=== PATIENT | male | born 1940 | race Caucasian/White ===

== ENCOUNTER 2018-09-03 20:30 | Inpatient (IN) | payer MEDICARE ==
[~2018-09-03] VITALS: Ht 182.9 cm; Wt 96.8 kg
[~2018-09-03 20:30] MED LIST: ALLO100T PO; AMLO10TA8 PO; ASPI-482 PO; BYSTOLIC10 MG PO; GLIM1TAB2 PO; HYDR1POW19 MC; VALS1TAB22 PO
[2018-09-03 20:55] LABS: BILIRUBIN,URINE SMALL (NEG); CLARITY,URINE CLEAR; COLOR,URINE YELLOW; NITRITE,URINE NEGATIVE (NEG); PROTEIN,URINE NEGATIVE (NEG-TRACE); UROBILINOGEN,URINE 0.2 mg/dL (0.2 mg/dL)
[2018-09-03 21:04] LABS: HYALINE CASTS, URINE MODERATE /HPF
[2018-09-03 21:05] LABS: BACTERIA,URINE 0 /HPF (0-FEW); RBC,URINE 0 /HPF (0-2); WBC,URINE 0 /HPF (0-4)
[2018-09-03 21:06] LABS: BASO # 0.1 x10^3/uL (0.0-0.2); BASO % 1 % (0-3); EOS # 0.2 x10^3/uL (0.0-0.7); EOS % 2 % (0-3); HEMATOCRIT 37.1 % (39.0-53.0); HEMOGLOBIN 12.2 g/dL (13.0-17.5); LYMPH # 0.9 x10^3/uL (1.0-4.8); LYMPH % 12 % (24-48); MEAN CORPUSCULAR HEMOGLOBIN 31 pg (25-35); MEAN CORPUSCULAR HGB CONC 33 g/dL (31-37); MEAN CORPUSCULAR VOLUME 94 fL (79-100); MONO # 0.4 x10^3/uL (0.0-1.1); MONO % 6 % (0-9); NEUT # 6.2 x10^3uL (1.8-7.7); NEUT % 79 % (31-73); PLATELET COUNT 136 x10^3/uL (140-400); RED BLOOD COUNT 3.96 x10^6/uL (4.30-5.70); RED CELL DISTRIBUTION WIDTH 14.4 % (11.5-14.5); WHITE BLOOD COUNT 7.8 x10^3/uL (4.0-11.0)
[2018-09-03 21:24] LABS: ALBUMIN 4.1 g/dL (3.4-5.0); ALBUMIN/GLOBULIN RATIO 1.2 (1.0-1.7); CALCIUM 9.5 mg/dL (8.5-10.1); CREATININE 4.3 mg/dL (0.7-1.3); GFR 13.5; TOTAL BILIRUBIN 1.1 mg/dL (0.2-1.0); TOTAL PROTEIN 7.4 g/dL (6.4-8.2)
[2018-09-03 21:25] LABS: POTASSIUM 6.3 mmol/L (3.5-5.1)
[2018-09-03] MEDS ORDERED: CALCIUM GLUCONATE 1,000 MG/10 ML VIAL. IVP ONE (22:00)
[2018-09-03] MEDS ORDERED: SODIUM POLYSTYRENE SULFONATE 15 GM/60 ML ORAL.SUSP. PO ONE (22:00)
[2018-09-03] MEDS ORDERED: SODIUM BICARB ADULT 8.4% 50 MEQ/50 ML DISP.SYRIN. IV ONE (22:00)
[2018-09-03] MEDS ORDERED: ALBUTEROL SULFATE 2.5 MG/3 ML NEBU. CONT NEB ONE (22:00)
[2018-09-03] MEDS ORDERED: DEXTROSE 50% 25 GM / 50ML DISP.SYRIN. IV ONE (22:00)
[2018-09-03] MEDS ORDERED: INSULIN REGULAR 100 UNIT/ML 3ML VIAL. IV ONE (22:00)
--- NOTE | 2018-09-03 22:03 | PHYS DOC ---
Past Medical History Past Medical History: CAD, Diabetes-Type II, Other Additional Past Medical Histor: lymphoma Past Surgical History: Coronary Bypass Surgery, Other Additional Past Surgical Histo: STENT PLACEMENT Alcohol Use: Occasionally Drug Use: None Adult General Chief Complaint Chief Complaint: ABDOMINAL PAIN HPI HPI 77-year-old male with a history of diabetes and coronary artery disease status post CABG presents with abnormal labs from his primary doctor's office. I spoke with the physician executive chef assistant who takes care of the patient and she informed me that he had an elevated potassium of 6.3 in the office. She checked routine labs because he been feeling poorly for a couple of months. Patient admits that he has been feeling poorly for a couple of months now. He has had some mid abdominal and lower abdominal discomfort off and on during that time. He states he continues to make urine. He denies any fever chills or sweats. He's had no nausea or vomiting. He denies any melena or hematemesis or hematochezia. Eyes gross hematuria.[] Review of Systems Review of Systems Constitutional: Denies fever or chills [] Eyes: Denies change in visual acuity, redness, or eye pain [] HENT: Denies nasal congestion or sore throat [] Respiratory: Denies cough or shortness of breath [] Cardiovascular: No additional information not addressed in HPI [] GI: Denies abdominal pain, nausea, vomiting, bloody stools or diarrhea [] : Per history of present illness[] Musculoskeletal: Denies back pain or joint pain [] Integument: Denies rash or skin lesions [] Neurologic: Denies headache, focal weakness or sensory changes [] Endocrine: Denies polyuria or polydipsia [] All other systems were reviewed and found to be within normal limits, except as documented in this note. Current Medications Current Medications Current Medications Medications (Trade) Dose Ordered Sig/Viraj Start Time Stop Time Status Last Admin Dose Admin Albuterol Sulfate (Ventolin Neb Soln) 10 mg 1X ONCE 09/03/18 22:00 09/03/18 22:01 UNV Calcium Gluconate (Calcium Gluconate) 1,000 mg 1X ONCE 09/03/18 22:00 09/03/18 22:01 UNV Dextrose (Dextrose 50%-Water Syringe) 25 gm 1X ONCE 09/03/18 22:00 09/03/18 22:01 UNV Insulin Human Regular (HumuLIN R VIAL) 10 unit 1X ONCE 09/03/18 22:00 09/03/18 22:01 UNV Sodium Polystyrene Sulfonate (Kayexalate) 30 gm 1X ONCE 09/03/18 22:00 09/03/18 22:01 UNV Sodium Bicarbonate (Sodium Bicarb Adult 8.4% Syr) 50 meq 1X ONCE 09/03/18 22:00 09/03/18 22:01 UNV Allergies Allergies Allergies Coded Allergies Type Severity Reaction Last Updated Verified No Known Drug Allergies 08/28/13 No Physical Exam Physical Exam Constitutional: Well developed, well nourished, no acute distress, non-toxic appearance. [] HENT: Normocephalic, atraumatic, bilateral external ears normal, oropharynx moist, no oral exudates, nose normal. [] Eyes: PERRLA, EOMI, conjunctiva normal, no discharge. [] Neck: Normal range of motion, no tenderness, supple, no stridor. [] Cardiovascular:Heart rate regular rhythm, no murmur [] Lungs & Thorax: Bilateral breath sounds clear to auscultation [] Abdomen: Bowel sounds normal, soft, no tenderness, no masses, no pulsatile masses. [] Skin: Warm, dry, no erythema, no rash. [] Back: No tenderness, no CVA tenderness. [] Extremities: No tenderness, no cyanosis, no clubbing, ROM intact, no edema. [] Neurologic: Alert and oriented X 3, normal motor function, normal sensory function, no focal deficits noted. [] Psychologic: Affect normal, judgement normal, mood normal. [] Current Patient Data Vital Signs Vital Signs Date Time Temp Pulse Resp B/P (MAP) Pulse Ox O2 Delivery O2 Flow Rate FiO2 09/03/18 20:54 84 16 117/69 (85) 95 Room Air 09/03/18 20:32 98.0 98.0 Lab Values Laboratory Tests Test 09/03/18 20:40 09/03/18 20:58 Urine Collection Type Unknown Urine Color Yellow Urine Clarity Clear Urine pH 5.0 Urine Specific [place] 1.020 Urine Protein Negative mg/dL (NEG-TRACE) Urine Glucose (UA) Negative mg/dL (NEG) Urine Ketones (Stick) Negative mg/dL (NEG) Urine Blood Negative (NEG) Urine Nitrite Negative (NEG) Urine Bilirubin Small (NEG) Urine Urobilinogen Dipstick 0.2 mg/dL (0.2 mg/dL) Urine Leukocyte Esterase Negative (NEG) Urine RBC 0 /HPF (0-2) Urine WBC 0 /HPF (0-4) Urine Bacteria 0 /HPF (0-FEW) Urine Hyaline Casts Moderate /HPF Urine Mucus Mod /LPF White Blood Count 7.8 x10^3/uL (4.0-11.0) Red Blood Count 3.96 x10^6/uL (4.30-5.70) L Hemoglobin 12.2 g/dL (13.0-17.5) L Hematocrit 37.1 % (39.0-53.0) L Mean Corpuscular Volume 94 fL (79-100) Mean Corpuscular Hemoglobin 31 pg (25-35) Mean Corpuscular Hemoglobin Concent 33 g/dL (31-37) Red Cell Distribution Width 14.4 % (11.5-14.5) Platelet Count 136 x10^3/uL (140-400) L Neutrophils (%) (Auto) 79 % (31-73) H Lymphocytes (%) (Auto) 12 % (24-48) L Monocytes (%) (Auto) 6 % (0-9) Eosinophils (%) (Auto) 2 % (0-3) Basophils (%) (Auto) 1 % (0-3) Neutrophils # (Auto) 6.2 x10^3uL (1.8-7.7) Lymphocytes # (Auto) 0.9 x10^3/uL (1.0-4.8) L Monocytes # (Auto) 0.4 x10^3/uL (0.0-1.1) Eosinophils # (Auto) 0.2 x10^3/uL (0.0-0.7) Basophils # (Auto) 0.1 x10^3/uL (0.0-0.2) Sodium Level 137 mmol/L (136-145) Potassium Level 6.3 mmol/L (3.5-5.1) *H Chloride Level 103 mmol/L (98-107) Carbon Dioxide Level 21 mmol/L (21-32) Anion Gap 13 (6-14) Blood Urea Nitrogen 84 mg/dL (8-26) H Creatinine 4.3 mg/dL (0.7-1.3) H Estimated GFR (Cockcroft-Gault) 13.5 BUN/Creatinine Ratio 20 (6-20) Glucose Level 178 mg/dL (70-99) H Calcium Level 9.5 mg/dL (8.5-10.1) Total Bilirubin 1.1 mg/dL (0.2-1.0) H Aspartate Amino Transferase (AST) 24 U/L (15-37) Alanine Aminotransferase (ALT) 41 U/L (16-63) Alkaline Phosphatase 85 U/L (46-116) Total Protein 7.4 g/dL (6.4-8.2) Albumin 4.1 g/dL (3.4-5.0) Albumin/Globulin Ratio 1.2 (1.0-1.7) Lipase 447 U/L (73-393) H Laboratory Tests 09/03/18 20:58 Laboratory Tests 09/03/18 20:58 EKG EKG [EKG: Sinus rhythm right bundle branch block no obvious T-wave abnormality rate in the 70s] Radiology/Procedures Radiology/Procedures [] Course & Med Decision Making Course & Med Decision Making Pertinent Labs and Imaging studies reviewed. (See chart for details) [ED course: Evaluation reveals a 77-year-old male with acute renal failure and hyperkalemia. Patient was given a multitude of medicines in the emergency department including calcium gluconate, sodium bicarbonate, 1 amp of D50 and 10 units of regular insulin along with 10 mg of albuterol nebulized. He was also given 30 g of Kayexalate. I will place the patient in the hospital with a nephrology consult. I did speak with the hospitalist who agreed to accept the patient for admission.] CRITICAL CARE: Time spent was 35 minutes. This includes medical management, evaluation, reevaluation, discussion with consultants and family. Critical Care does NOT include time spent on separately billed procedures. Dragon Disclaimer Dragon Disclaimer This electronic medical record was generated, in whole or in part, using a voice recognition dictation system. Departure Departure Impression: Primary Impression: Acute renal failure (ARF) Additional Impression: Hyperkalemia Disposition: ADMITTED INPATIENT Admitting Physician: Bridgette Davis Condition: GUARDED Referrals: UNKNOWN PCP NAME (PCP) Problem Qualifiers Primary Impression: Acute renal failure (ARF) Acute renal failure type: unspecified Qualified Codes: N17.9 - Acute kidney failure, unspecified ISAK DICKINSON DO Sep 03, 2018 22:03
[2018-09-03] MEDS ORDERED: ONDANSETRON PF 4 MG/2 ML VIAL. IV PRN (22:15)
[2018-09-03] MEDS: IV NORMAL SALINE 1000ML BAG 1,000 ML IV SCH (23:14)
[2018-09-04] VITALS (7 sets, daily range): BP systolic 110–157; BP diastolic 49–74
[2018-09-04] MEDS: IV NORMAL SALINE 1000ML BAG 1,000 ML IV SCH ×2 (06:21→14:39)
--- NOTE | 2018-09-04 07:05 | EKG ---
[facility] [address] [place] [address] Test Date: 2018-09-03 Test Time: 21:17:40 Pat Name: WOJCIECH SERRANO Department: Room: 8 1 Gender: M Floor Service Worker [place]: : 1940 Requested By: ISAK DICKINSON Order Number: [id number] Reading MD: Leonard Roche MD Measurements Intervals [place] Rate: 71 P: 29 [place]: 268 QRS: 21 QRSD: 140 T: 16 QT: 402 QTc: 441 Interpretive Statements SINUS RHYTHM PROLONGED [place] INTERVAL NON SPECIFIC INTRAVENTRICULAR BLOCK RVH WITH REPOLARIZATION ABNORMALITY QRS(T) CONTOUR ABNORMALITY CONSISTENT WITH INFERIOR INFARCT PROBABLY OLD ABNORMAL ECG Electronically Signed On 09-16-2018 9:49:58 CDT by Leonard Roche MD
[2018-09-04 07:09] LABS: CALCIUM 8.9 mg/dL (8.5-10.1); CREATININE 3.4 mg/dL (0.7-1.3); GFR 17.7
--- NOTE | 2018-09-04 10:59 | PDOC1 ---
History and Physical Date of Admission Date of Admission DATE: 09/04/18 TIME: 10:58 Identification/Chief Complaint Chief Complaint seen in er , history of diabetes and coronary artery disease status post CABG presents with abnormal labs from his primary doctor's office. he had an elevated potassium of 6.3 in the office. She checked routine labs because he been feeling poorly for a couple of months. medicines in the emergency department including calcium gluconate, sodium bicarbonate, 1 amp of D50 and 10 units of regular insulin along with 10 mg of albuterol nebulized. He was also given 30 g of Kayexalate. Past Medical History Past Medical History Past Medical History Past Medical History: CAD, Diabetes-Type II, Other Additional Past Medical Histor: lymphoma Past Surgical History: Coronary Bypass Surgery, Other Additional Past Surgical Histo: STENT PLACEMENT Alcohol Use: Occasionally Drug Use: None Cardiovascular: CAD, HTN Pulmonary: No pertinent hx Heme/Onc: Cancer Renal/: No pertinent hx, Chronic renal insuff, Acute renal failure Endocrine: Diabetes Past Surgical History Past Surgical History: CABG Family History Family History: Hypertension Social History Smoke: No ALCOHOL: none Drugs: None Current Problem List Problem List Problems Medical Problems: (1) Acute renal failure (ARF) Status: Acute (2) Hyperkalemia Status: Acute Current Medications Current Medications Current Medications Sodium Bicarbonate (Sodium Bicarb Adult 8.4% Syr) 50 meq 1X ONCE IV Last administered on 09/03/18at 22:10; Start 09/03/18 at 22:00; Stop 09/03/18 at 22:01; Status DC Calcium Gluconate (Calcium Gluconate) 1,000 mg 1X ONCE IVP Last administered on 09/03/18at 22:11; Start 09/03/18 at 22:00; Stop 09/03/18 at 22:01; Status DC Dextrose (Dextrose 50%-Water Syringe) 25 gm 1X ONCE IV Last administered on 09/03/18at 22:10; Start 09/03/18 at 22:00; Stop 09/03/18 at 22:01; Status DC Insulin Human Regular (HumuLIN R VIAL) 10 unit 1X ONCE IV Last administered on 09/03/18at 22:12; Start 09/03/18 at 22:00; Stop 09/03/18 at 22:01; Status DC Albuterol Sulfate (Ventolin Neb Soln) 10 mg 1X ONCE CONT NEB Last administered on 09/03/18at 22:40; Start 09/03/18 at 22:00; Stop 09/03/18 at 22:01; Status DC Sodium Polystyrene Sulfonate (Kayexalate) 30 gm 1X ONCE PO Last administered on 09/03/18at 22:10; Start 09/03/18 at 22:00; Stop 09/03/18 at 22:01; Status DC Ondansetron HCl (Zofran) 4 mg PRN Q8HRS PRN IV NAUSEA/VOMITING; Start 09/03/18 at 22:15; Stop 09/04/18 at 22:14 Sodium Chloride 1,000 ml @ 125 mls/hr Q8H IV Last administered on 09/04/18at 06 :21; Start 09/03/18 at 22:03; Stop 09/04/18 at 22:02 Active Scripts Active Aspir 81 (Aspirin) 81 Mg Tablet.dr 81 Mg PO DAILY Glimepiride 1 Mg Tablet 1 Mg PO DAILY Allopurinol 100 Mg Tablet 100 Mg PO DAILY Bystolic (Nebivolol) 10 Mg Tablet 10 Mg PO DAILY Amlodipine Besylate 10 Mg Tablet 10 Mg PO DAILY Hydrochlorothiazide 25 Gm Powder 25 Gm MC DAILY Diovan Hct 320-25 Mg Tablet (Valsartan/Hydrochlorothiazide) 1 Each Tablet 1 Each PO DAILY Allergies Allergies: Coded Allergies: No Known Drug Allergies (Unverified , 08/28/13) ROS Review of System Review of Systems Review of Systems Constitutional: Denies fever or chills [] Eyes: Denies change in visual acuity, redness, or eye pain [] HENT: Denies nasal congestion or sore throat [] Respiratory: Denies cough or shortness of breath [] Cardiovascular: No additional information not addressed in HPI [] GI: Denies abdominal pain, nausea, vomiting, bloody stools or diarrhea [] : Per history of present illness[] Musculoskeletal: Denies back pain or joint pain [] Integument: Denies rash or skin lesions [] Neurologic: Denies headache, focal weakness or sensory changes [] Endocrine: Denies polyuria or polydipsia [] 14 pt systems were reviewed and found to be within normal limits, except as documented Physical Exam Physical Exam Physical Exam Physical Exam Constitutional: Well developed, well nourished, no acute distress, non-toxic appearance. [] HENT: Normocephalic, atraumatic, bilateral external ears normal, oropharynx moist, no oral exudates, nose normal. [] Eyes: PERRLA, EOMI, conjunctiva normal, no discharge. [] Neck: Normal range of motion, no tenderness, supple, no stridor. [] Cardiovascular:Heart rate regular rhythm, no murmur [] Lungs & Thorax: Bilateral breath sounds clear to auscultation [] Abdomen: Bowel sounds normal, soft, no tenderness, no masses, no pulsatile masses. [] Skin: Warm, dry, no erythema, no rash. [] Back: No tenderness, no CVA tenderness. [] Extremities: No tenderness, no cyanosis, no clubbing, ROM intact, no edema. [] Neurologic: Alert and oriented X 3, normal motor function, normal sensory function, no focal deficits noted. [] Psychologic: Affect normal, judgement normal, mood normal. [] General: Alert, Oriented X3, Cooperative, mild distress HEENT: Atraumatic, PERRLA Lungs: Clear to auscultation Heart: S1S2, RRR Abdomen: Normal bowel sounds, Soft Rectal Exam: not examined PELVIC: Examination not indicated Extremities: No clubbing, No cyanosis Skin: No breakdown Neuro: Normal speech, Cranial nerves 3-12 NL Psych/Mental Status: Mental status NL, Mood NL Vitals Vitals Vital Signs Date Time Temp Pulse Resp B/P (MAP) Pulse Ox O2 Delivery O2 Flow Rate FiO2 09/04/18 10:00 Room Air 09/04/18 07:00 97.7 87 17 124/70 (88) 98 97.7 Labs Labs Laboratory Tests Test 09/03/18 20:40 09/03/18 20:58 09/04/18 05:00 Urine Collection Type Unknown Urine Color Yellow Urine Clarity Clear Urine pH 5.0 Urine Specific [place] 1.020 Urine Protein Negative mg/dL (NEG-TRACE) Urine Glucose (UA) Negative mg/dL (NEG) Urine Ketones (Stick) Negative mg/dL (NEG) Urine Blood Negative (NEG) Urine Nitrite Negative (NEG) Urine Bilirubin Small (NEG) Urine Urobilinogen Dipstick 0.2 mg/dL (0.2 mg/dL) Urine Leukocyte Esterase Negative (NEG) Urine RBC 0 /HPF (0-2) Urine WBC 0 /HPF (0-4) Urine Bacteria 0 /HPF (0-FEW) Urine Hyaline Casts Moderate /HPF Urine Mucus Mod /LPF White Blood Count 7.8 x10^3/uL (4.0-11.0) Red Blood Count 3.96 x10^6/uL (4.30-5.70) Hemoglobin 12.2 g/dL (13.0-17.5) Hematocrit 37.1 % (39.0-53.0) Mean Corpuscular Volume 94 fL (79-100) Mean Corpuscular Hemoglobin 31 pg (25-35) Mean Corpuscular Hemoglobin Concent 33 g/dL (31-37) Red Cell Distribution Width 14.4 % (11.5-14.5) Platelet Count 136 x10^3/uL (140-400) Neutrophils (%) (Auto) 79 % (31-73) Lymphocytes (%) (Auto) 12 % (24-48) Monocytes (%) (Auto) 6 % (0-9) Eosinophils (%) (Auto) 2 % (0-3) Basophils (%) (Auto) 1 % (0-3) Neutrophils # (Auto) 6.2 x10^3uL (1.8-7.7) Lymphocytes # (Auto) 0.9 x10^3/uL (1.0-4.8) Monocytes # (Auto) 0.4 x10^3/uL (0.0-1.1) Eosinophils # (Auto) 0.2 x10^3/uL (0.0-0.7) Basophils # (Auto) 0.1 x10^3/uL (0.0-0.2) Sodium Level 137 mmol/L (136-145) 142 mmol/L (136-145) Potassium Level 6.3 mmol/L (3.5-5.1) 5.0 mmol/L (3.5-5.1) Chloride Level 103 mmol/L (98-107) 106 mmol/L (98-107) Carbon Dioxide Level 21 mmol/L (21-32) 22 mmol/L (21-32) Anion Gap 13 (6-14) 14 (6-14) Blood Urea Nitrogen 84 mg/dL (8-26) 85 mg/dL (8-26) Creatinine 4.3 mg/dL (0.7-1.3) 3.4 mg/dL (0.7-1.3) Estimated GFR (Cockcroft-Gault) 13.5 17.7 BUN/Creatinine Ratio 20 (6-20) Glucose Level 178 mg/dL (70-99) 84 mg/dL (70-99) Calcium Level 9.5 mg/dL (8.5-10.1) 8.9 mg/dL (8.5-10.1) Total Bilirubin 1.1 mg/dL (0.2-1.0) Aspartate Amino Transf (AST/SGOT) 24 U/L (15-37) Alanine Aminotransferase (ALT/SGPT) 41 U/L (16-63) Alkaline Phosphatase 85 U/L (46-116) Total Protein 7.4 g/dL (6.4-8.2) Albumin 4.1 g/dL (3.4-5.0) Albumin/Globulin Ratio 1.2 (1.0-1.7) Lipase 447 U/L (73-393) Laboratory Tests Test 09/03/18 20:40 09/03/18 20:58 09/04/18 05:00 Urine Collection Type Unknown Urine Color Yellow Urine Clarity Clear Urine pH 5.0 Urine Specific [place] 1.020 Urine Protein Negative mg/dL (NEG-TRACE) Urine Glucose (UA) Negative mg/dL (NEG) Urine Ketones (Stick) Negative mg/dL (NEG) Urine Blood Negative (NEG) Urine Nitrite Negative (NEG) Urine Bilirubin Small (NEG) Urine Urobilinogen Dipstick 0.2 mg/dL (0.2 mg/dL) Urine Leukocyte Esterase Negative (NEG) Urine RBC 0 /HPF (0-2) Urine WBC 0 /HPF (0-4) Urine Bacteria 0 /HPF (0-FEW) Urine Hyaline Casts Moderate /HPF Urine Mucus Mod /LPF White Blood Count 7.8 x10^3/uL (4.0-11.0) Red Blood Count 3.96 x10^6/uL (4.30-5.70) Hemoglobin 12.2 g/dL (13.0-17.5) Hematocrit 37.1 % (39.0-53.0) Mean Corpuscular Volume 94 fL (79-100) Mean Corpuscular Hemoglobin 31 pg (25-35) Mean Corpuscular Hemoglobin Concent 33 g/dL (31-37) Red Cell Distribution Width 14.4 % (11.5-14.5) Platelet Count 136 x10^3/uL (140-400) Neutrophils (%) (Auto) 79 % (31-73) Lymphocytes (%) (Auto) 12 % (24-48) Monocytes (%) (Auto) 6 % (0-9) Eosinophils (%) (Auto) 2 % (0-3) Basophils (%) (Auto) 1 % (0-3) Neutrophils # (Auto) 6.2 x10^3uL (1.8-7.7) Lymphocytes # (Auto) 0.9 x10^3/uL (1.0-4.8) Monocytes # (Auto) 0.4 x10^3/uL (0.0-1.1) Eosinophils # (Auto) 0.2 x10^3/uL (0.0-0.7) Basophils # (Auto) 0.1 x10^3/uL (0.0-0.2) Sodium Level 137 mmol/L (136-145) 142 mmol/L (136-145) Potassium Level 6.3 mmol/L (3.5-5.1) 5.0 mmol/L (3.5-5.1) Chloride Level 103 mmol/L (98-107) 106 mmol/L (98-107) Carbon Dioxide Level 21 mmol/L (21-32) 22 mmol/L (21-32) Anion Gap 13 (6-14) 14 (6-14) Blood Urea Nitrogen 84 mg/dL (8-26) 85 mg/dL (8-26) Creatinine 4.3 mg/dL (0.7-1.3) 3.4 mg/dL (0.7-1.3) Estimated GFR (Cockcroft-Gault) 13.5 17.7 BUN/Creatinine Ratio 20 (6-20) Glucose Level 178 mg/dL (70-99) 84 mg/dL (70-99) Calcium Level 9.5 mg/dL (8.5-10.1) 8.9 mg/dL (8.5-10.1) Total Bilirubin 1.1 mg/dL (0.2-1.0) Aspartate Amino Transf (AST/SGOT) 24 U/L (15-37) Alanine Aminotransferase (ALT/SGPT) 41 U/L (16-63) Alkaline Phosphatase 85 U/L (46-116) Total Protein 7.4 g/dL (6.4-8.2) Albumin 4.1 g/dL (3.4-5.0) Albumin/Globulin Ratio 1.2 (1.0-1.7) Lipase 447 U/L (73-393) VTE Prophylaxis Ordered VTE Prophylaxis Devices: Yes VTE Pharmacological Prophylaxi: Yes Assessment/Plan Assessment/Plan impression 1. acute renal failure, severe 2. hyperkalemia, life threatening, severe 3. 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 hx lymphoma 6. hypertension hx 7. hx CAD plan correct k URGENTLY nephrology consult iv fluid support tele frequent labs bp control a1c D/C nephrotoxins, allopurinol, valsarten accuchecks ss insulin DVT prophylaxis 78 min pt exam, chart review, > 50% of time spent with exam, chart review, pt care coordination LEIF OWENS MD Sep 04, 2018 10:59
--- NOTE | 2018-09-04 17:20 | PDOC2 ---
CONSULT Date of Consult Date of Consult DATE: 09/04/18 TIME: 17:15 Reason for Consult Reason for Consult: BRAEDEN Source Source: Chart review, Patient History of Present Illness Reason for Visit: Pt is a 77 yo CM with history of diabetes and CAD status post CABG presents with abnormal labs from his primary doctor's office.He was found to have an elevated potassium of 6.3 in the office. Labs checked because he been feeling poorly for a couple of months. He states he is pretty active and still works . He states he does'nt have any kidney issues , he rememebers that few years back he was told that his Kidney enz was high but ahd returned back to normal after the med (doesnt know the name) was stopped . He has been following with PCP regularly. Currently his PCP is Dr. Bishop He denies any urinary complaints. No CP, SOB., No N/V/D. No Urinary retention. Never takes NSAID's or any pain meds . He wa son ValsartaN/HCTZ which was dced due to recall and switched to Spironolactone 50 mg QD approx 3 months back He is Not sure if he is still on HCTZ . 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) Past Medical History Cardiovascular: CAD, HTN Pulmonary: No pertinent hx Heme/Onc: Cancer Renal/: No pertinent hx Endocrine: Diabetes Past Surgical History Past Surgical History: CABG Family History Family History: Hypertension Current Problem List Problem List Problems Medical Problems: (1) Acute renal failure (ARF) Status: Acute (2) Hyperkalemia Status: Acute Current Medications Current Medications Current Medications Sodium Bicarbonate (Sodium Bicarb Adult 8.4% Syr) 50 meq 1X ONCE IV Last administered on 09/03/18at 22:10; Start 09/03/18 at 22:00; Stop 09/03/18 at 22:01; Status DC Calcium Gluconate (Calcium Gluconate) 1,000 mg 1X ONCE IVP Last administered on 09/03/18at 22:11; Start 09/03/18 at 22:00; Stop 09/03/18 at 22:01; Status DC Dextrose (Dextrose 50%-Water Syringe) 25 gm 1X ONCE IV Last administered on 09/03/18at 22:10; Start 09/03/18 at 22:00; Stop 09/03/18 at 22:01; Status DC Insulin Human Regular (HumuLIN R VIAL) 10 unit 1X ONCE IV Last administered on 09/03/18at 22:12; Start 09/03/18 at 22:00; Stop 09/03/18 at 22:01; Status DC Albuterol Sulfate (Ventolin Neb Soln) 10 mg 1X ONCE CONT NEB Last administered on 09/03/18at 22:40; Start 09/03/18 at 22:00; Stop 09/03/18 at 22:01; Status DC Sodium Polystyrene Sulfonate (Kayexalate) 30 gm 1X ONCE PO Last administered on 09/03/18at 22:10; Start 09/03/18 at 22:00; Stop 09/03/18 at 22:01; Status DC Ondansetron HCl (Zofran) 4 mg PRN Q8HRS PRN IV NAUSEA/VOMITING; Start 09/03/18 at 22:15; Stop 09/04/18 at 22:14 Sodium Chloride 1,000 ml @ 125 mls/hr Q8H IV Last administered on 09/04/18at 14 :39; Start 09/03/18 at 22:03; Stop 09/04/18 at 22:02 Active Scripts Active Aspir 81 (Aspirin) 81 Mg Tablet.dr 81 Mg PO DAILY Glimepiride 1 Mg Tablet 1 Mg PO DAILY Allopurinol 100 Mg Tablet 100 Mg PO DAILY Bystolic (Nebivolol) 10 Mg Tablet 10 Mg PO DAILY Amlodipine Besylate 10 Mg Tablet 10 Mg PO DAILY Hydrochlorothiazide 25 Gm Powder 25 Gm MC DAILY Diovan Hct 320-25 Mg Tablet (Valsartan/Hydrochlorothiazide) 1 Each Tablet 1 Each PO DAILY Allergies Allergies: Coded Allergies: No Known Drug Allergies (Unverified , 08/28/13) ROS Review of System As per HPI Physical Exam Physical Exam GEN: NAD HEEN: OM moist NECK: supple CVS: RRR RESP: CTA, No Acc. Muscle Use GI: BS + ve, NO Bruit, Non Tender, Non Distended : No CVA tenderness, No Suprapubic Tenderness NEURO- AXOX3 SKIN- No Rash - No Mark, No SP or CVA tenderness Vital Signs Vital Signs Date Time Temp Pulse Resp B/P (MAP) Pulse Ox O2 Delivery O2 Flow Rate FiO2 09/04/18 15:00 97.5 75 18 140/70 (93) 98 Room Air 97.5 Assessment & Plan BRAEDEN - Pre-renal/ATN Suspect sec to Aldactone Baseline Unknown(Cr 1.7-2 in 2014 at [facility]) Obtain Records from PCP IVF, Renal US , Monitor I/O, UA unremarkable , Holding Aldactone Hyperkalemia - Improved CAD s/p CABG On Valsartan/HCTZ in past Spironolactone since past 3 months , Dced now Discussed A/P with pt and RN Labs Labs Laboratory Tests Test 09/03/18 20:40 09/03/18 20:58 09/04/18 05:00 Urine Collection Type Unknown Urine Color Yellow Urine Clarity Clear Urine pH 5.0 Urine Specific [place] 1.020 Urine Protein Negative mg/dL (NEG-TRACE) Urine Glucose (UA) Negative mg/dL (NEG) Urine Ketones (Stick) Negative mg/dL (NEG) Urine Blood Negative (NEG) Urine Nitrite Negative (NEG) Urine Bilirubin Small (NEG) Urine Urobilinogen Dipstick 0.2 mg/dL (0.2 mg/dL) Urine Leukocyte Esterase Negative (NEG) Urine RBC 0 /HPF (0-2) Urine WBC 0 /HPF (0-4) Urine Bacteria 0 /HPF (0-FEW) Urine Hyaline Casts Moderate /HPF Urine Mucus Mod /LPF White Blood Count 7.8 x10^3/uL (4.0-11.0) Red Blood Count 3.96 x10^6/uL (4.30-5.70) Hemoglobin 12.2 g/dL (13.0-17.5) Hematocrit 37.1 % (39.0-53.0) Mean Corpuscular Volume 94 fL (79-100) Mean Corpuscular Hemoglobin 31 pg (25-35) Mean Corpuscular Hemoglobin Concent 33 g/dL (31-37) Red Cell Distribution Width 14.4 % (11.5-14.5) Platelet Count 136 x10^3/uL (140-400) Neutrophils (%) (Auto) 79 % (31-73) Lymphocytes (%) (Auto) 12 % (24-48) Monocytes (%) (Auto) 6 % (0-9) Eosinophils (%) (Auto) 2 % (0-3) Basophils (%) (Auto) 1 % (0-3) Neutrophils # (Auto) 6.2 x10^3uL (1.8-7.7) Lymphocytes # (Auto) 0.9 x10^3/uL (1.0-4.8) Monocytes # (Auto) 0.4 x10^3/uL (0.0-1.1) Eosinophils # (Auto) 0.2 x10^3/uL (0.0-0.7) Basophils # (Auto) 0.1 x10^3/uL (0.0-0.2) Sodium Level 137 mmol/L (136-145) 142 mmol/L (136-145) Potassium Level 6.3 mmol/L (3.5-5.1) 5.0 mmol/L (3.5-5.1) Chloride Level 103 mmol/L (98-107) 106 mmol/L (98-107) Carbon Dioxide Level 21 mmol/L (21-32) 22 mmol/L (21-32) Anion Gap 13 (6-14) 14 (6-14) Blood Urea Nitrogen 84 mg/dL (8-26) 85 mg/dL (8-26) Creatinine 4.3 mg/dL (0.7-1.3) 3.4 mg/dL (0.7-1.3) Estimated GFR (Cockcroft-Gault) 13.5 17.7 BUN/Creatinine Ratio 20 (6-20) Glucose Level 178 mg/dL (70-99) 84 mg/dL (70-99) Calcium Level 9.5 mg/dL (8.5-10.1) 8.9 mg/dL (8.5-10.1) Total Bilirubin 1.1 mg/dL (0.2-1.0) Aspartate Amino Transf (AST/SGOT) 24 U/L (15-37) Alanine Aminotransferase (ALT/SGPT) 41 U/L (16-63) Alkaline Phosphatase 85 U/L (46-116) Total Protein 7.4 g/dL (6.4-8.2) Albumin 4.1 g/dL (3.4-5.0) Albumin/Globulin Ratio 1.2 (1.0-1.7) Lipase 447 U/L (73-393) Laboratory Tests Test 09/03/18 20:40 09/03/18 20:58 09/04/18 05:00 Urine Collection Type Unknown Urine Color Yellow Urine Clarity Clear Urine pH 5.0 Urine Specific [place] 1.020 Urine Protein Negative mg/dL (NEG-TRACE) Urine Glucose (UA) Negative mg/dL (NEG) Urine Ketones (Stick) Negative mg/dL (NEG) Urine Blood Negative (NEG) Urine Nitrite Negative (NEG) Urine Bilirubin Small (NEG) Urine Urobilinogen Dipstick 0.2 mg/dL (0.2 mg/dL) Urine Leukocyte Esterase Negative (NEG) Urine RBC 0 /HPF (0-2) Urine WBC 0 /HPF (0-4) Urine Bacteria 0 /HPF (0-FEW) Urine Hyaline Casts Moderate /HPF Urine Mucus Mod /LPF White Blood Count 7.8 x10^3/uL (4.0-11.0) Red Blood Count 3.96 x10^6/uL (4.30-5.70) Hemoglobin 12.2 g/dL (13.0-17.5) Hematocrit 37.1 % (39.0-53.0) Mean Corpuscular Volume 94 fL (79-100) Mean Corpuscular Hemoglobin 31 pg (25-35) Mean Corpuscular Hemoglobin Concent 33 g/dL (31-37) Red Cell Distribution Width 14.4 % (11.5-14.5) Platelet Count 136 x10^3/uL (140-400) Neutrophils (%) (Auto) 79 % (31-73) Lymphocytes (%) (Auto) 12 % (24-48) Monocytes (%) (Auto) 6 % (0-9) Eosinophils (%) (Auto) 2 % (0-3) Basophils (%) (Auto) 1 % (0-3) Neutrophils # (Auto) 6.2 x10^3uL (1.8-7.7) Lymphocytes # (Auto) 0.9 x10^3/uL (1.0-4.8) Monocytes # (Auto) 0.4 x10^3/uL (0.0-1.1) Eosinophils # (Auto) 0.2 x10^3/uL (0.0-0.7) Basophils # (Auto) 0.1 x10^3/uL (0.0-0.2) Sodium Level 137 mmol/L (136-145) 142 mmol/L (136-145) Potassium Level 6.3 mmol/L (3.5-5.1) 5.0 mmol/L (3.5-5.1) Chloride Level 103 mmol/L (98-107) 106 mmol/L (98-107) Carbon Dioxide Level 21 mmol/L (21-32) 22 mmol/L (21-32) Anion Gap 13 (6-14) 14 (6-14) Blood Urea Nitrogen 84 mg/dL (8-26) 85 mg/dL (8-26) Creatinine 4.3 mg/dL (0.7-1.3) 3.4 mg/dL (0.7-1.3) Estimated GFR (Cockcroft-Gault) 13.5 17.7 BUN/Creatinine Ratio 20 (6-20) Glucose Level 178 mg/dL (70-99) 84 mg/dL (70-99) Calcium Level 9.5 mg/dL (8.5-10.1) 8.9 mg/dL (8.5-10.1) Total Bilirubin 1.1 mg/dL (0.2-1.0) Aspartate Amino Transf (AST/SGOT) 24 U/L (15-37) Alanine Aminotransferase (ALT/SGPT) 41 U/L (16-63) Alkaline Phosphatase 85 U/L (46-116) Total Protein 7.4 g/dL (6.4-8.2) Albumin 4.1 g/dL (3.4-5.0) Albumin/Globulin Ratio 1.2 (1.0-1.7) Lipase 447 U/L (73-393) Review All relevant outside records, renal labs, imaging studies, telemetry/EKG's were reviewed. DAISY ACKERMAN MD Sep 04, 2018 17:19
[2018-09-04] MEDS ORDERED: DEXTROSE 50% 25 GM / 50ML DISP.SYRIN. IV PRN (17:30)
[2018-09-04 17:47] LABS: PROTHROMBIN TIME PATIENT 12.9 SEC (11.7-14.0)
[2018-09-04] MEDS: ASPIRIN ENTERIC COATED 81 MG TABLET.DR. PO SCH (17:47)
[2018-09-04] MEDS: amLODIPine BESYLATE 10 MG TABLET PO SCH (17:47)
[2018-09-04] MEDS: METOPROLOL TART IMMED RELEASE 50 MG TABLET. PO SCH (20:54)
[2018-09-04] MEDS: HEPARIN for SUB-Q USE 5,000 UNIT/ML VIAL. SQ SCH (22:22)
[2018-09-05 03:00] VITALS: BP 136/73
[2018-09-05 04:23] LABS: BASO # 0.1 x10^3/uL (0.0-0.2); BASO % 1 % (0-3); EOS # 0.2 x10^3/uL (0.0-0.7); EOS % 3 % (0-3); HEMATOCRIT 34.5 % (39.0-53.0); HEMOGLOBIN 11.5 g/dL (13.0-17.5); LYMPH # 1.1 x10^3/uL (1.0-4.8); LYMPH % 18 % (24-48); MEAN CORPUSCULAR HEMOGLOBIN 31 pg (25-35); MEAN CORPUSCULAR HGB CONC 33 g/dL (31-37); MEAN CORPUSCULAR VOLUME 94 fL (79-100); MONO # 0.4 x10^3/uL (0.0-1.1); MONO % 6 % (0-9); NEUT # 4.6 x10^3uL (1.8-7.7); NEUT % 72 % (31-73); PLATELET COUNT 114 x10^3/uL (140-400); RED BLOOD COUNT 3.68 x10^6/uL (4.30-5.70); RED CELL DISTRIBUTION WIDTH 14.2 % (11.5-14.5); WHITE BLOOD COUNT 6.4 x10^3/uL (4.0-11.0)
[2018-09-05 04:39] LABS: ALBUMIN 3.5 g/dL (3.4-5.0); ALBUMIN/GLOBULIN RATIO 1.2 (1.0-1.7); CALCIUM 8.9 mg/dL (8.5-10.1); CREATININE 2.4 mg/dL (0.7-1.3); GFR 26.4; TOTAL PROTEIN 6.4 g/dL (6.4-8.2)
[2018-09-05] MEDS: HEPARIN for SUB-Q USE 5,000 UNIT/ML VIAL. SQ SCH ×3 (06:22→20:27)
[2018-09-05 07:15] VITALS: BP 141/72
[2018-09-05] MEDS: INSULIN LISPRO 300 UNITS/3 ML INSULN.PEN. SQ SCH ×3 (08:00→17:00)
--- NOTE | 2018-09-05 08:20 | RAD ---
Renal ultrasound 09/04/2018 INDICATION: Acute renal failure COMPARISON STUDY: None Discussion: Ultrasound evaluation of the kidneys was performed. Static images are submitted to PACS. Right kidney measures 9.8 x 5.0 x 5.1 cm. Lobulated appearance of the right kidney noted. No hydronephrosis or nephrolithiasis is identified on the right. No focal renal lesions are seen. Partial visualization of the aorta and IVC demonstrates no gross abnormality. Left kidney measures 11.1 x 4.8 x 4.5 cm. Lobulated appearance of the left kidney noted. No hydronephrosis, nephrolithiasis, or focal renal lesion is seen on the left. Bilateral ureteral jets noted. The bladder is mildly distended. The prostate appears to be enlarged possibly partially calcified external projecting into the inferior bladder. Prostate is somewhat poorly visualized however the estimated prostatic dimensions are 3.8 x 3.9 x 3.1 cm. There is a possible right sided bladder diverticulum which is poorly demonstrated. Post void bladder residual volume was found to be elevated at 253 cc. IMPRESSION: 1. Mild right renal atrophy with respect to the contralateral side. 2. Bladder distention with increased post void residual volume 253 cc 3. Possible small right bladder diverticulum, visualization of which is limited 4. Prostamegaly Electronically signed by: Osbaldo Medrano MD (09/05/2018 8:18 AM) [id number]
[2018-09-05] MEDS: ASPIRIN ENTERIC COATED 81 MG TABLET.DR. PO SCH (09:01)
[2018-09-05] MEDS: GLIMEPIRIDE 2 MG TABLET. PO SCH (09:02)
[2018-09-05] MEDS: amLODIPine BESYLATE 10 MG TABLET PO SCH (09:02)
[2018-09-05] MEDS: METOPROLOL TART IMMED RELEASE 50 MG TABLET. PO SCH ×2 (09:03→20:24)
--- NOTE | 2018-09-05 10:20 | PDOC ---
PROGRESS NOTES History of Present Illness History of Present Illness Assessment/Plan Assessment/Plan impression 1. acute renal failure, severe 2. hyperkalemia, life threatening, severe 3. 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 hx lymphoma 6. hypertension hx 7. hx CAD 8. Post void bladder residual volume was found to be elevated at 253 cc. 9. prostate appears to be enlarged possibly partially calcified external projecting into the inferior bladder.estimated prostatic dimensions are 3.8 x 3.9 x 3.1 cm. There is a possible right sided bladder diverticulum which is poorly demonstrated. plan correct k URGENTLY nephrology consult iv fluid support tele frequent labs bp control a1c D/C nephrotoxins, allopurinol, valsarten accuchecks ss insulin DVT prophylaxis urology consult 45 min pt exam, chart review, > 50% of time spent with exam, chart review, pt care coordination Vitals Vitals Vital Signs Date Time Temp Pulse Resp B/P (MAP) Pulse Ox O2 Delivery O2 Flow Rate FiO2 09/05/18 09:03 70 141/72 09/05/18 07:15 97.6 20 98 Room Air 97.6 Physical Exam General: Alert, Oriented X3, Cooperative, No acute distress, mild distress Heart: Regular rate Lungs: Clear Abdomen: Normal bowel sounds, Soft Extremities: No clubbing, No cyanosis Skin: No breakdown, No significant lesion Labs LABS Renal ultrasound 09/04/2018 INDICATION: Acute renal failure COMPARISON STUDY: None Discussion: Ultrasound evaluation of the kidneys was performed. Static images are submitted to PACS. Right kidney measures 9.8 x 5.0 x 5.1 cm. Lobulated appearance of the right kidney noted. No hydronephrosis or nephrolithiasis is identified on the right. No focal renal lesions are seen. Partial visualization of the aorta and IVC demonstrates no gross abnormality. Left kidney measures 11.1 x 4.8 x 4.5 cm. Lobulated appearance of the left kidney noted. No hydronephrosis, nephrolithiasis, or focal renal lesion is seen on the left. Bilateral ureteral jets noted. The bladder is mildly distended. The prostate appears to be enlarged possibly partially calcified external projecting into the inferior bladder. Prostate is somewhat poorly visualized however the estimated prostatic dimensions are 3.8 x 3.9 x 3.1 cm. There is a possible right sided bladder diverticulum which is poorly demonstrated. Post void bladder residual volume was found to be elevated at 253 cc. IMPRESSION: 1. Mild right renal atrophy with respect to the contralateral side. 2. Bladder distention with increased post void residual volume 253 cc 3. Possible small right bladder diverticulum, visualization of which is limited 4. Prostamegaly Electronically signed by: Osbaldo Medrano MD (09/05/2018 8:18 AM) [id number] Laboratory Tests Test 09/04/18 19:15 09/05/18 02:50 09/05/18 07:28 09/05/18 08:01 Glucose (Fingerstick) 94 mg/dL (70-99) 68 mg/dL (70-99) 103 mg/dL (70-99) White Blood Count 6.4 x10^3/uL (4.0-11.0) Red Blood Count 3.68 x10^6/uL (4.30-5.70) Hemoglobin 11.5 g/dL (13.0-17.5) Hematocrit 34.5 % (39.0-53.0) Mean Corpuscular Volume 94 fL (79-100) Mean Corpuscular Hemoglobin 31 pg (25-35) Mean Corpuscular Hemoglobin Concent 33 g/dL (31-37) Red Cell Distribution Width 14.2 % (11.5-14.5) Platelet Count 114 x10^3/uL (140-400) Neutrophils (%) (Auto) 72 % (31-73) Lymphocytes (%) (Auto) 18 % (24-48) Monocytes (%) (Auto) 6 % (0-9) Eosinophils (%) (Auto) 3 % (0-3) Basophils (%) (Auto) 1 % (0-3) Neutrophils # (Auto) 4.6 x10^3uL (1.8-7.7) Lymphocytes # (Auto) 1.1 x10^3/uL (1.0-4.8) Monocytes # (Auto) 0.4 x10^3/uL (0.0-1.1) Eosinophils # (Auto) 0.2 x10^3/uL (0.0-0.7) Basophils # (Auto) 0.1 x10^3/uL (0.0-0.2) Sodium Level 141 mmol/L (136-145) Potassium Level 5.0 mmol/L (3.5-5.1) Chloride Level 106 mmol/L (98-107) Carbon Dioxide Level 24 mmol/L (21-32) Anion Gap 11 (6-14) Blood Urea Nitrogen 61 mg/dL (8-26) Creatinine 2.4 mg/dL (0.7-1.3) Estimated GFR (Cockcroft-Gault) 26.4 BUN/Creatinine Ratio 25 (6-20) Glucose Level 66 mg/dL (70-99) Calcium Level 8.9 mg/dL (8.5-10.1) Total Bilirubin 1.0 mg/dL (0.2-1.0) Aspartate Amino Transf (AST/SGOT) 23 U/L (15-37) Alanine Aminotransferase (ALT/SGPT) 37 U/L (16-63) Alkaline Phosphatase 70 U/L (46-116) Total Protein 6.4 g/dL (6.4-8.2) Albumin 3.5 g/dL (3.4-5.0) Albumin/Globulin Ratio 1.2 (1.0-1.7) Assessment and Plan Assessmemt and Plan Problems Medical Problems: (1) Acute renal failure (ARF) Status: Acute (2) Hyperkalemia Status: Acute Comment Review of Relevant I have reviewed the following items tonia (where applicable) has been applied. Labs Laboratory Tests Test 09/03/18 20:40 09/03/18 20:58 09/04/18 05:00 09/04/18 19:15 Urine Collection Type Unknown Urine Color Yellow Urine Clarity Clear Urine pH 5.0 Urine Specific [place] 1.020 Urine Protein Negative mg/dL (NEG-TRACE) Urine Glucose (UA) Negative mg/dL (NEG) Urine Ketones (Stick) Negative mg/dL (NEG) Urine Blood Negative (NEG) Urine Nitrite Negative (NEG) Urine Bilirubin Small (NEG) Urine Urobilinogen Dipstick 0.2 mg/dL (0.2 mg/dL) Urine Leukocyte Esterase Negative (NEG) Urine RBC 0 /HPF (0-2) Urine WBC 0 /HPF (0-4) Urine Bacteria 0 /HPF (0-FEW) Urine Hyaline Casts Moderate /HPF Urine Mucus Mod /LPF White Blood Count 7.8 x10^3/uL (4.0-11.0) Red Blood Count 3.96 x10^6/uL (4.30-5.70) Hemoglobin 12.2 g/dL (13.0-17.5) Hematocrit 37.1 % (39.0-53.0) Mean Corpuscular Volume 94 fL (79-100) Mean Corpuscular Hemoglobin 31 pg (25-35) Mean Corpuscular Hemoglobin Concent 33 g/dL (31-37) Red Cell Distribution Width 14.4 % (11.5-14.5) Platelet Count 136 x10^3/uL (140-400) Neutrophils (%) (Auto) 79 % (31-73) Lymphocytes (%) (Auto) 12 % (24-48) Monocytes (%) (Auto) 6 % (0-9) Eosinophils (%) (Auto) 2 % (0-3) Basophils (%) (Auto) 1 % (0-3) Neutrophils # (Auto) 6.2 x10^3uL (1.8-7.7) Lymphocytes # (Auto) 0.9 x10^3/uL (1.0-4.8) Monocytes # (Auto) 0.4 x10^3/uL (0.0-1.1) Eosinophils # (Auto) 0.2 x10^3/uL (0.0-0.7) Basophils # (Auto) 0.1 x10^3/uL (0.0-0.2) Sodium Level 137 mmol/L (136-145) 142 mmol/L (136-145) Potassium Level 6.3 mmol/L (3.5-5.1) 5.0 mmol/L (3.5-5.1) Chloride Level 103 mmol/L (98-107) 106 mmol/L (98-107) Carbon Dioxide Level 21 mmol/L (21-32) 22 mmol/L (21-32) Anion Gap 13 (6-14) 14 (6-14) Blood Urea Nitrogen 84 mg/dL (8-26) 85 mg/dL (8-26) Creatinine 4.3 mg/dL (0.7-1.3) 3.4 mg/dL (0.7-1.3) Estimated GFR (Cockcroft-Gault) 13.5 17.7 BUN/Creatinine Ratio 20 (6-20) Glucose Level 178 mg/dL (70-99) 84 mg/dL (70-99) Calcium Level 9.5 mg/dL (8.5-10.1) 8.9 mg/dL (8.5-10.1) Total Bilirubin 1.1 mg/dL (0.2-1.0) Aspartate Amino Transf (AST/SGOT) 24 U/L (15-37) Alanine Aminotransferase (ALT/SGPT) 41 U/L (16-63) Alkaline Phosphatase 85 U/L (46-116) Total Protein 7.4 g/dL (6.4-8.2) Albumin 4.1 g/dL (3.4-5.0) Albumin/Globulin Ratio 1.2 (1.0-1.7) Lipase 447 U/L (73-393) Prothrombin Time 12.9 SEC (11.7-14.0) Prothromb Time International Ratio 1.0 (0.8-1.1) Glucose (Fingerstick) 94 mg/dL (70-99) Test 09/05/18 02:50 09/05/18 07:28 09/05/18 08:01 White Blood Count 6.4 x10^3/uL (4.0-11.0) Red Blood Count 3.68 x10^6/uL (4.30-5.70) Hemoglobin 11.5 g/dL (13.0-17.5) Hematocrit 34.5 % (39.0-53.0) Mean Corpuscular Volume 94 fL (79-100) Mean Corpuscular Hemoglobin 31 pg (25-35) Mean Corpuscular Hemoglobin Concent 33 g/dL (31-37) Red Cell Distribution Width 14.2 % (11.5-14.5) Platelet Count 114 x10^3/uL (140-400) Neutrophils (%) (Auto) 72 % (31-73) Lymphocytes (%) (Auto) 18 % (24-48) Monocytes (%) (Auto) 6 % (0-9) Eosinophils (%) (Auto) 3 % (0-3) Basophils (%) (Auto) 1 % (0-3) Neutrophils # (Auto) 4.6 x10^3uL (1.8-7.7) Lymphocytes # (Auto) 1.1 x10^3/uL (1.0-4.8) Monocytes # (Auto) 0.4 x10^3/uL (0.0-1.1) Eosinophils # (Auto) 0.2 x10^3/uL (0.0-0.7) Basophils # (Auto) 0.1 x10^3/uL (0.0-0.2) Sodium Level 141 mmol/L (136-145) Potassium Level 5.0 mmol/L (3.5-5.1) Chloride Level 106 mmol/L (98-107) Carbon Dioxide Level 24 mmol/L (21-32) Anion Gap 11 (6-14) Blood Urea Nitrogen 61 mg/dL (8-26) Creatinine 2.4 mg/dL (0.7-1.3) Estimated GFR (Cockcroft-Gault) 26.4 BUN/Creatinine Ratio 25 (6-20) Glucose Level 66 mg/dL (70-99) Calcium Level 8.9 mg/dL (8.5-10.1) Total Bilirubin 1.0 mg/dL (0.2-1.0) Aspartate Amino Transf (AST/SGOT) 23 U/L (15-37) Alanine Aminotransferase (ALT/SGPT) 37 U/L (16-63) Alkaline Phosphatase 70 U/L (46-116) Total Protein 6.4 g/dL (6.4-8.2) Albumin 3.5 g/dL (3.4-5.0) Albumin/Globulin Ratio 1.2 (1.0-1.7) Glucose (Fingerstick) 68 mg/dL (70-99) 103 mg/dL (70-99) Laboratory Tests Test 09/04/18 19:15 09/05/18 02:50 09/05/18 07:28 09/05/18 08:01 Glucose (Fingerstick) 94 mg/dL (70-99) 68 mg/dL (70-99) 103 mg/dL (70-99) White Blood Count 6.4 x10^3/uL (4.0-11.0) Red Blood Count 3.68 x10^6/uL (4.30-5.70) Hemoglobin 11.5 g/dL (13.0-17.5) Hematocrit 34.5 % (39.0-53.0) Mean Corpuscular Volume 94 fL (79-100) Mean Corpuscular Hemoglobin 31 pg (25-35) Mean Corpuscular Hemoglobin Concent 33 g/dL (31-37) Red Cell Distribution Width 14.2 % (11.5-14.5) Platelet Count 114 x10^3/uL (140-400) Neutrophils (%) (Auto) 72 % (31-73) Lymphocytes (%) (Auto) 18 % (24-48) Monocytes (%) (Auto) 6 % (0-9) Eosinophils (%) (Auto) 3 % (0-3) Basophils (%) (Auto) 1 % (0-3) Neutrophils # (Auto) 4.6 x10^3uL (1.8-7.7) Lymphocytes # (Auto) 1.1 x10^3/uL (1.0-4.8) Monocytes # (Auto) 0.4 x10^3/uL (0.0-1.1) Eosinophils # (Auto) 0.2 x10^3/uL (0.0-0.7) Basophils # (Auto) 0.1 x10^3/uL (0.0-0.2) Sodium Level 141 mmol/L (136-145) Potassium Level 5.0 mmol/L (3.5-5.1) Chloride Level 106 mmol/L (98-107) Carbon Dioxide Level 24 mmol/L (21-32) Anion Gap 11 (6-14) Blood Urea Nitrogen 61 mg/dL (8-26) Creatinine 2.4 mg/dL (0.7-1.3) Estimated GFR (Cockcroft-Gault) 26.4 BUN/Creatinine Ratio 25 (6-20) Glucose Level 66 mg/dL (70-99) Calcium Level 8.9 mg/dL (8.5-10.1) Total Bilirubin 1.0 mg/dL (0.2-1.0) Aspartate Amino Transf (AST/SGOT) 23 U/L (15-37) Alanine Aminotransferase (ALT/SGPT) 37 U/L (16-63) Alkaline Phosphatase 70 U/L (46-116) Total Protein 6.4 g/dL (6.4-8.2) Albumin 3.5 g/dL (3.4-5.0) Albumin/Globulin Ratio 1.2 (1.0-1.7) Medications Current Medications Sodium Bicarbonate (Sodium Bicarb Adult 8.4% Syr) 50 meq 1X ONCE IV Last administered on 09/03/18 22:10; Start 09/03/18 at 22:00; Stop 09/03/18 at 22:01; Status DC Calcium Gluconate (Calcium Gluconate) 1,000 mg 1X ONCE IVP Last administered on 09/03/18 22:11; Start 09/03/18 at 22:00; Stop 09/03/18 at 22:01; Status DC Dextrose (Dextrose 50%-Water Syringe) 25 gm 1X ONCE IV Last administered on 22:10; Start 09/03/18 at 22:00; Stop 09/03/18 at 22:01; Status DC Insulin Human Regular (HumuLIN R VIAL) 10 unit 1X ONCE IV Last administered on 09/03/18 22:12; Start 09/03/18 at 22:00; Stop 09/03/18 at 22:01; Status DC Albuterol Sulfate (Ventolin Neb Soln) 10 mg 1X ONCE CONT NEB Last administered on 09/03/18 22:40; Start 09/03/18 at 22:00; Stop 09/03/18 at 22:01; Status DC Sodium Polystyrene Sulfonate (Kayexalate) 30 gm 1X ONCE PO Last administered on 09/03/18 22:10; Start 09/03/18 at 22:00; Stop 09/03/18 at 22:01; Status DC Ondansetron HCl (Zofran) 4 mg PRN Q8HRS PRN IV NAUSEA/VOMITING; Start 09/03/18 at 22:15; Stop 09/04/18 at 22:14; Status DC Sodium Chloride 1,000 ml @ 125 mls/hr Q8H IV Last administered on 09/04/18 14 :39; Start 09/03/18 at 22:03; Stop 09/04/18 at 22:02; Status DC Amlodipine Besylate (Norvasc) 10 mg DAILY PO Last administered on 09/05/18 09: 02; Start 09/04/18 at 17:30 Aspirin (Ecotrin) 81 mg DAILY PO Last administered on 09/05/18 09:01; Start at 17:00 Glimepiride (Amaryl) 1 mg DAILYWBKFT PO Last administered on 4/11/19at 09:02; Start 09/05/18 at 08:00 Metoprolol Tartrate (Lopressor) 50 mg BID PO Last administered on 09/05/18at 09: 03; Start 09/04/18 at 21:00 Insulin Human Lispro (HumaLOG) 0-5 UNITS TIDWMEALS SQ ; Start 09/05/18 at 08:00 Dextrose (Dextrose 50%-Water Syringe) 12.5 gm PRN Q15MIN PRN IV SEE COMMENTS; Start 09/04/18 at 17:30 Heparin Sodium (Porcine) (Heparin Sodium) 5,000 unit Q8HRS SQ Last administered on 09/05/18at 06:22; Start 09/04/18 at 22:00 Active Scripts Active Aspir 81 (Aspirin) 81 Mg Tablet.dr 81 Mg PO DAILY Glimepiride 1 Mg Tablet 1 Mg PO DAILY Allopurinol 100 Mg Tablet 100 Mg PO DAILY Bystolic (Nebivolol) 10 Mg Tablet 10 Mg PO DAILY Amlodipine Besylate 10 Mg Tablet 10 Mg PO DAILY Hydrochlorothiazide 25 Gm Powder 25 Gm MC DAILY Diovan Hct 320-25 Mg Tablet (Valsartan/Hydrochlorothiazide) 1 Each Tablet 1 Each PO DAILY Vitals/I & O Vital Sign - Last 24 Hours 09/04/18 09/04/18 09/04/18 09/04/18 11:00 15:00 17:47 19:00 Temp 97.7 97.5 97.7 97.7 97.5 97.7 Pulse 78 75 75 80 Resp 17 18 18 B/P (MAP) 133/74 (93) 140/70 (93) 140/70 157/71 (99) Pulse Ox 97 98 95 O2 Delivery Room Air Room Air Room Air 09/04/18 09/04/18 09/04/18 09/05/18 20:00 20:54 23:00 03:00 Temp 97.5 98.1 97.5 98.1 Pulse 80 68 79 Resp 18 18 B/P (MAP) 157/71 128/63 (84) 136/73 (94) Pulse Ox 96 96 O2 Delivery Room Air Room Air Room Air 09/05/18 09/05/18 09/05/18 07:15 09:02 09:03 Temp 97.6 97.6 Pulse 70 70 70 Resp 20 B/P (MAP) 141/72 (95) 141/72 141/72 Pulse Ox 98 O2 Delivery Room Air Intake and Output 09/04/18 09/04/18 09/05/18 14:59 22:59 06:59 Intake Total 480 ml 0 ml Balance 480 ml 0 ml LEIF OWENS MD Sep 05, 2018 10:20
--- NOTE | 2018-09-05 10:49 | PDOC2 ---
YARITZA CRUZ [place] MANAGER EXPORT 09/05/18 1049: UROLOGY CONSULT Date of Consult Date of Consult DATE: 09/05/18 TIME: 10:46 Reason for Consult Reason for Consult: Urinary retention noted on US + Enlarged prostate Referring Physician Referring Physician: Livier Source Source: Caregiver, Chart review, Patient History of Present Illness Reason for Visit: This 77 year old pleasant male with a history of DM and CAD with status post CABG. has been hospitalized for Renal Failure and hyperkalemia. He had some labs checked by his PCP due to "not feeling well," and they revealed a K level of 6.3. During the course of his hospitalization, a Renal US was ordered and he was found to have a PVR of 253 and an enlarged prostate on the imaging; therefore Urology was consulted. Today he is feeling well, with no dysuria, hematuria or LUTS. He only gets up once a night, around 5 am to void, but other than this is doing quite well. He last had a BEATRIZ/prostate check about one year ago, and is agreeable to getting it done again today. He denies history of kidney stones, and has never been told he has BPH or prostate cancer. He would like to go home today but is not sure if this is going to happen. Past Medical History Cardiovascular: CAD, HTN Pulmonary: No pertinent hx Heme/Onc: Cancer Renal/: No pertinent hx, Chronic renal insuff, Acute renal failure Endocrine: Diabetes Past Surgical History Past Surgical History: CABG Family History Family History: Hypertension Social History No ALCOHOL: none Drugs: None Current Problem List Problems: (1) BPH (benign prostatic hyperplasia) Current Medications Current Medications Current Medications Amlodipine Besylate (Norvasc) 10 mg DAILY PO Last administered on 09/05/18at 09: 02; Start 09/04/18 at 17:30 Aspirin (Ecotrin) 81 mg DAILY PO Last administered on 09/05/18at 09:01; Start at 17:00 Dextrose (Dextrose 50%-Water Syringe) 12.5 gm PRN Q15MIN PRN IV SEE COMMENTS; Start 09/04/18 at 17:30 Glimepiride (Amaryl) 1 mg DAILYWBKFT PO Last administered on 09/05/18at 09:02; Start 09/05/18 at 08:00 Heparin Sodium (Porcine) (Heparin Sodium) 5,000 unit Q8HRS SQ Last administered on 09/05/18at 06:22; Start 09/04/18 at 22:00 Insulin Human Lispro (HumaLOG) 0-5 UNITS TIDWMEALS SQ ; Start 09/05/18 at 08:00 Metoprolol Tartrate (Lopressor) 50 mg BID PO Last administered on 09/05/18at 09: 03; Start 09/04/18 at 21:00 Allergies Allergies: Coded Allergies: No Known Drug Allergies (Unverified , 08/28/13) ROS Review Of Systems: CONSTITUTIONAL: No fever or chills EYES: No recent changes SKIN: No rash or itching CARDIOVASCULAR: No chest pain, syncope, palpitations, or edema RESPIRATORY: No SOB or cough GASTROINTESTINAL: No nausea, vomiting or abdominal pain NEUROLOGICAL: No headaches or weakness ENDOCRINE: No cold or heat intolerance GENITOURINARY: No urgency or frequency of urination MUSCULOSKELETAL: No back pain or joint pain LYMPHATICS: No enlarged lymph nodes PSYCHIATRIC: No anxiety or depression Physical Exam Physical Exam: General: Pleasant, no acute distress, well groomed Eyes: conjunctiva anicteric, eyes full range of motion ENT: moist oral mucosa, normal dentition Neck: Trachea midline, no masses Respiratory: unlabored breathing, not using accessory muscles, Abdomen: nontender, nondistended, no hepatosplenomegaly, no masses BEATRIZ does reveal enlarged prostate, about 60-70 grams, but otherwise normal. PVR 175 Skin: no rashes or skin lesions on visualized skin Psych: normal mood, affect. Alert and oriented x 3. Vitals VITALS Vital Signs Date Time Temp Pulse Resp B/P (MAP) Pulse Ox O2 Delivery O2 Flow Rate FiO2 09/05/18 09:03 70 141/72 09/05/18 07:15 97.6 20 98 Room Air 97.6 Labs Labs Laboratory Tests Test 09/03/18 20:40 09/03/18 20:58 09/04/18 05:00 09/04/18 19:15 Urine Collection Type Unknown Urine Color Yellow Urine Clarity Clear Urine pH 5.0 Urine Specific [place] 1.020 Urine Protein Negative mg/dL (NEG-TRACE) Urine Glucose (UA) Negative mg/dL (NEG) Urine Ketones (Stick) Negative mg/dL (NEG) Urine Blood Negative (NEG) Urine Nitrite Negative (NEG) Urine Bilirubin Small (NEG) Urine Urobilinogen Dipstick 0.2 mg/dL (0.2 mg/dL) Urine Leukocyte Esterase Negative (NEG) Urine RBC 0 /HPF (0-2) Urine WBC 0 /HPF (0-4) Urine Bacteria 0 /HPF (0-FEW) Urine Hyaline Casts Moderate /HPF Urine Mucus Mod /LPF White Blood Count 7.8 x10^3/uL (4.0-11.0) Red Blood Count 3.96 x10^6/uL (4.30-5.70) Hemoglobin 12.2 g/dL (13.0-17.5) Hematocrit 37.1 % (39.0-53.0) Mean Corpuscular Volume 94 fL (79-100) Mean Corpuscular Hemoglobin 31 pg (25-35) Mean Corpuscular Hemoglobin Concent 33 g/dL (31-37) Red Cell Distribution Width 14.4 % (11.5-14.5) Platelet Count 136 x10^3/uL (140-400) Neutrophils (%) (Auto) 79 % (31-73) Lymphocytes (%) (Auto) 12 % (24-48) Monocytes (%) (Auto) 6 % (0-9) Eosinophils (%) (Auto) 2 % (0-3) Basophils (%) (Auto) 1 % (0-3) Neutrophils # (Auto) 6.2 x10^3uL (1.8-7.7) Lymphocytes # (Auto) 0.9 x10^3/uL (1.0-4.8) Monocytes # (Auto) 0.4 x10^3/uL (0.0-1.1) Eosinophils # (Auto) 0.2 x10^3/uL (0.0-0.7) Basophils # (Auto) 0.1 x10^3/uL (0.0-0.2) Sodium Level 137 mmol/L (136-145) 142 mmol/L (136-145) Potassium Level 6.3 mmol/L (3.5-5.1) 5.0 mmol/L (3.5-5.1) Chloride Level 103 mmol/L (98-107) 106 mmol/L (98-107) Carbon Dioxide Level 21 mmol/L (21-32) 22 mmol/L (21-32) Anion Gap 13 (6-14) 14 (6-14) Blood Urea Nitrogen 84 mg/dL (8-26) 85 mg/dL (8-26) Creatinine 4.3 mg/dL (0.7-1.3) 3.4 mg/dL (0.7-1.3) Estimated GFR (Cockcroft-Gault) 13.5 17.7 BUN/Creatinine Ratio 20 (6-20) Glucose Level 178 mg/dL (70-99) 84 mg/dL (70-99) Calcium Level 9.5 mg/dL (8.5-10.1) 8.9 mg/dL (8.5-10.1) Total Bilirubin 1.1 mg/dL (0.2-1.0) Aspartate Amino Transf (AST/SGOT) 24 U/L (15-37) Alanine Aminotransferase (ALT/SGPT) 41 U/L (16-63) Alkaline Phosphatase 85 U/L (46-116) Total Protein 7.4 g/dL (6.4-8.2) Albumin 4.1 g/dL (3.4-5.0) Albumin/Globulin Ratio 1.2 (1.0-1.7) Lipase 447 U/L (73-393) Prothrombin Time 12.9 SEC (11.7-14.0) Prothromb Time International Ratio 1.0 (0.8-1.1) Glucose (Fingerstick) 94 mg/dL (70-99) Test 09/05/18 02:50 09/05/18 07:28 09/05/18 08:01 White Blood Count 6.4 x10^3/uL (4.0-11.0) Red Blood Count 3.68 x10^6/uL (4.30-5.70) Hemoglobin 11.5 g/dL (13.0-17.5) Hematocrit 34.5 % (39.0-53.0) Mean Corpuscular Volume 94 fL (79-100) Mean Corpuscular Hemoglobin 31 pg (25-35) Mean Corpuscular Hemoglobin Concent 33 g/dL (31-37) Red Cell Distribution Width 14.2 % (11.5-14.5) Platelet Count 114 x10^3/uL (140-400) Neutrophils (%) (Auto) 72 % (31-73) Lymphocytes (%) (Auto) 18 % (24-48) Monocytes (%) (Auto) 6 % (0-9) Eosinophils (%) (Auto) 3 % (0-3) Basophils (%) (Auto) 1 % (0-3) Neutrophils # (Auto) 4.6 x10^3uL (1.8-7.7) Lymphocytes # (Auto) 1.1 x10^3/uL (1.0-4.8) Monocytes # (Auto) 0.4 x10^3/uL (0.0-1.1) Eosinophils # (Auto) 0.2 x10^3/uL (0.0-0.7) Basophils # (Auto) 0.1 x10^3/uL (0.0-0.2) Sodium Level 141 mmol/L (136-145) Potassium Level 5.0 mmol/L (3.5-5.1) Chloride Level 106 mmol/L (98-107) Carbon Dioxide Level 24 mmol/L (21-32) Anion Gap 11 (6-14) Blood Urea Nitrogen 61 mg/dL (8-26) Creatinine 2.4 mg/dL (0.7-1.3) Estimated GFR (Cockcroft-Gault) 26.4 BUN/Creatinine Ratio 25 (6-20) Glucose Level 66 mg/dL (70-99) Calcium Level 8.9 mg/dL (8.5-10.1) Total Bilirubin 1.0 mg/dL (0.2-1.0) Aspartate Amino Transf (AST/SGOT) 23 U/L (15-37) Alanine Aminotransferase (ALT/SGPT) 37 U/L (16-63) Alkaline Phosphatase 70 U/L (46-116) Total Protein 6.4 g/dL (6.4-8.2) Albumin 3.5 g/dL (3.4-5.0) Albumin/Globulin Ratio 1.2 (1.0-1.7) Glucose (Fingerstick) 68 mg/dL (70-99) 103 mg/dL (70-99) Laboratory Tests Test 09/04/18 19:15 09/05/18 02:50 09/05/18 07:28 09/05/18 08:01 Glucose (Fingerstick) 94 mg/dL (70-99) 68 mg/dL (70-99) 103 mg/dL (70-99) White Blood Count 6.4 x10^3/uL (4.0-11.0) Red Blood Count 3.68 x10^6/uL (4.30-5.70) Hemoglobin 11.5 g/dL (13.0-17.5) Hematocrit 34.5 % (39.0-53.0) Mean Corpuscular Volume 94 fL (79-100) Mean Corpuscular Hemoglobin 31 pg (25-35) Mean Corpuscular Hemoglobin Concent 33 g/dL (31-37) Red Cell Distribution Width 14.2 % (11.5-14.5) Platelet Count 114 x10^3/uL (140-400) Neutrophils (%) (Auto) 72 % (31-73) Lymphocytes (%) (Auto) 18 % (24-48) Monocytes (%) (Auto) 6 % (0-9) Eosinophils (%) (Auto) 3 % (0-3) Basophils (%) (Auto) 1 % (0-3) Neutrophils # (Auto) 4.6 x10^3uL (1.8-7.7) Lymphocytes # (Auto) 1.1 x10^3/uL (1.0-4.8) Monocytes # (Auto) 0.4 x10^3/uL (0.0-1.1) Eosinophils # (Auto) 0.2 x10^3/uL (0.0-0.7) Basophils # (Auto) 0.1 x10^3/uL (0.0-0.2) Sodium Level 141 mmol/L (136-145) Potassium Level 5.0 mmol/L (3.5-5.1) Chloride Level 106 mmol/L (98-107) Carbon Dioxide Level 24 mmol/L (21-32) Anion Gap 11 (6-14) Blood Urea Nitrogen 61 mg/dL (8-26) Creatinine 2.4 mg/dL (0.7-1.3) Estimated GFR (Cockcroft-Gault) 26.4 BUN/Creatinine Ratio 25 (6-20) Glucose Level 66 mg/dL (70-99) Calcium Level 8.9 mg/dL (8.5-10.1) Total Bilirubin 1.0 mg/dL (0.2-1.0) Aspartate Amino Transf (AST/SGOT) 23 U/L (15-37) Alanine Aminotransferase (ALT/SGPT) 37 U/L (16-63) Alkaline Phosphatase 70 U/L (46-116) Total Protein 6.4 g/dL (6.4-8.2) Albumin 3.5 g/dL (3.4-5.0) Albumin/Globulin Ratio 1.2 (1.0-1.7) Images Images Renal US: 1. Mild right renal atrophy with respect to the contralateral side. 2. Bladder distention with increased post void residual volume 253 cc 3. Possible small right bladder diverticulum, visualization of which is limited 4. Prostamegaly Assessment/Plan Assessment/Plan Patient just voided 5 minutes ago with PVR of 175=Incomplete bladder emptying. Start Flomax, recommend he continue as an outpatient. BEATRIZ does reveal enlarged prostate, about 60-70 grams, but otherwise normal. Discussed getting a PSA in 3-4 weeks after discharge with PCP. MOIZ SYKES MD 09/05/18 1519: UROLOGY CONSULT Assessment/Plan Assessment/Plan Patient seen and examined. I agree with the assessment and plan. While his postvoid residual is elevated, I do not think it is contributing to his renal failure. Continue Flomax 0.4 mg daily as an outpatient. He will follow-up us in the clinic in the next month. YARITZA CRUZ APRN Sep 05, 2018 10:49 MOIZ SYKES MD Sep 05, 2018 15:19
[2018-09-05 11:00] VITALS: BP 136/71
--- NOTE | 2018-09-05 12:20 | PDOC ---
SUBJECTIVE ROS No complaints , feeling good OBJECTIVE Vital Signs Vital Signs Date Time Temp Pulse Resp B/P (MAP) Pulse Ox O2 Delivery O2 Flow Rate FiO2 09/05/18 11:00 97.5 68 20 136/71 (92) 99 Room Air 97.5 I & 0 Intake and Output 09/05/18 07:00 Intake Total 480 ml Balance 480 ml Intake Oral 480 ml # Voids 2 PHYSICAL EXAM Physical Exam GEN: NAD HEEN: OM moist NECK: supple CVS: RRR RESP: CTA, No Acc. Muscle Use GI: BS + ve, NO Bruit, Non Tender, Non Distended : No CVA tenderness, No Suprapubic Tenderness NEURO- AXOX3 SKIN- No Rash - No Mark, No SP or CVA tenderness DIAGNOSIS/ASSESSMENT Assessment & Plan BRAEDEN - ATN Suspect sec to Aldactone Baseline Unknown(Cr 1.7-2 in 2013 at [facility]) Awaiting Records from PCP Renal US reviewed UA unremarkable , Holding Aldactone Improving renal function Hyperkalemia - Improved BPH- On US with some PVR Urology Consulted Recommend Flomax and FU as OP CAD s/p CABG On Valsartan/HCTZ in past Spironolactone since past 3 months , Dced now Discussed A/P with pt and RN DC likely Tomorrow. Follow up labs with PCP post Dc COMMENT/RELEVANT DATA Meds Current Medications Medications (Trade) Dose Ordered Sig/Viraj Start Time Stop Time Status Last Admin Dose Admin Albuterol Sulfate (Ventolin Neb Soln) 10 mg 1X ONCE 09/03/18 22:00 09/03/18 22:01 DC 09/03/18 22:40 10 MG Amlodipine Besylate (Norvasc) 10 mg DAILY 09/04/18 17:30 09/05/18 09:02 10 MG Aspirin (Ecotrin) 81 mg DAILY 09/04/18 17:00 09/05/18 09:01 81 MG Calcium Gluconate (Calcium Gluconate) 1,000 mg 1X ONCE 09/03/18 22:00 09/03/18 22:01 DC 09/03/18 22:11 1,000 MG Dextrose (Dextrose 50%-Water Syringe) 12.5 gm PRN Q15MIN PRN 09/04/18 17:30 Glimepiride (Amaryl) 1 mg DAILYWBKFT 09/05/18 08:00 09/05/18 09:02 1 MG Heparin Sodium (Porcine) (Heparin Sodium) 5,000 unit Q8HRS 09/04/18 22:00 09/05/18 06:22 5,000 UNIT Insulin Human Lispro (HumaLOG) 0-5 UNITS TIDWMEALS 09/05/18 08:00 Insulin Human Regular (HumuLIN R VIAL) 10 unit 1X ONCE 09/03/18 22:00 09/03/18 22:01 DC 09/03/18 22:12 10 UNIT Metoprolol Tartrate (Lopressor) 50 mg BID 09/04/18 21:00 09/05/18 09:03 50 MG Ondansetron HCl (Zofran) 4 mg PRN Q8HRS PRN 09/03/18 22:15 09/04/18 22:14 DC Sodium Polystyrene Sulfonate (Kayexalate) 30 gm 1X ONCE 09/03/18 22:00 09/03/18 22:01 DC 09/03/18 22:10 30 GM Sodium Bicarbonate (Sodium Bicarb Adult 8.4% Syr) 50 meq 1X ONCE 09/03/18 22:00 09/03/18 22:01 DC 09/03/18 22:10 50 MEQ Sodium Chloride 1,000 ml @ 125 mls/hr Q8H 09/03/18 22:03 09/04/18 22:02 DC 09/04/18 14:39 125 MLS/HR Tamsulosin HCl (Flomax) 0.4 mg DAILY 09/06/18 09:00 Lab Laboratory Tests Test 09/04/18 19:15 09/05/18 02:50 09/05/18 07:28 09/05/18 08:01 Glucose (Fingerstick) 94 mg/dL (70-99) 68 mg/dL (70-99) 103 mg/dL (70-99) White Blood Count 6.4 x10^3/uL (4.0-11.0) Red Blood Count 3.68 x10^6/uL (4.30-5.70) Hemoglobin 11.5 g/dL (13.0-17.5) Hematocrit 34.5 % (39.0-53.0) Mean Corpuscular Volume 94 fL (79-100) Mean Corpuscular Hemoglobin 31 pg (25-35) Mean Corpuscular Hemoglobin Concent 33 g/dL (31-37) Red Cell Distribution Width 14.2 % (11.5-14.5) Platelet Count 114 x10^3/uL (140-400) Neutrophils (%) (Auto) 72 % (31-73) Lymphocytes (%) (Auto) 18 % (24-48) Monocytes (%) (Auto) 6 % (0-9) Eosinophils (%) (Auto) 3 % (0-3) Basophils (%) (Auto) 1 % (0-3) Neutrophils # (Auto) 4.6 x10^3uL (1.8-7.7) Lymphocytes # (Auto) 1.1 x10^3/uL (1.0-4.8) Monocytes # (Auto) 0.4 x10^3/uL (0.0-1.1) Eosinophils # (Auto) 0.2 x10^3/uL (0.0-0.7) Basophils # (Auto) 0.1 x10^3/uL (0.0-0.2) Sodium Level 141 mmol/L (136-145) Potassium Level 5.0 mmol/L (3.5-5.1) Chloride Level 106 mmol/L (98-107) Carbon Dioxide Level 24 mmol/L (21-32) Anion Gap 11 (6-14) Blood Urea Nitrogen 61 mg/dL (8-26) Creatinine 2.4 mg/dL (0.7-1.3) Estimated GFR (Cockcroft-Gault) 26.4 BUN/Creatinine Ratio 25 (6-20) Glucose Level 66 mg/dL (70-99) Calcium Level 8.9 mg/dL (8.5-10.1) Total Bilirubin 1.0 mg/dL (0.2-1.0) Aspartate Amino Transf (AST/SGOT) 23 U/L (15-37) Alanine Aminotransferase (ALT/SGPT) 37 U/L (16-63) Alkaline Phosphatase 70 U/L (46-116) Total Protein 6.4 g/dL (6.4-8.2) Albumin 3.5 g/dL (3.4-5.0) Albumin/Globulin Ratio 1.2 (1.0-1.7) Test 09/05/18 11:22 Glucose (Fingerstick) 118 mg/dL (70-99) Results All relevant outside records, renal labs, imaging studies, telemetry/EKG's were reviewed. DAISY ACKERMAN MD Sep 05, 2018 12:20
[2018-09-05 15:00] VITALS: BP 158/72
[2018-09-05 19:00] VITALS: BP 118/70
[2018-09-05 22:46] VITALS: BP 137/79
[2018-09-05 23:12] LABS: HEMOGLOBIN A1C 6.6 % (4.8-5.6)
[2018-09-06 02:55] VITALS: BP 118/68
[2018-09-06 04:45] LABS: ALBUMIN 3.7 g/dL (3.4-5.0); CALCIUM 8.9 mg/dL (8.5-10.1); CREATININE 2.1 mg/dL (0.7-1.3); GFR 30.8; PHOSPHORUS 3.7 mg/dL (2.6-4.7)
[2018-09-06] MEDS: HEPARIN for SUB-Q USE 5,000 UNIT/ML VIAL. SQ SCH (06:00)
[2018-09-06 07:20] VITALS: BP 128/74
[2018-09-06] MEDS: INSULIN LISPRO 300 UNITS/3 ML INSULN.PEN. SQ SCH ×2 (08:00→12:41)
[2018-09-06] MEDS ORDERED: TAMSULOSIN 0.4 MG CAP.ER.24H. PO SCH (09:00)
[2018-09-06] MEDS: ASPIRIN ENTERIC COATED 81 MG TABLET.DR. PO SCH (09:14)
[2018-09-06] MEDS: amLODIPine BESYLATE 10 MG TABLET PO SCH (09:14)
[2018-09-06] MEDS: GLIMEPIRIDE 2 MG TABLET. PO SCH (09:14)
[2018-09-06] MEDS: METOPROLOL TART IMMED RELEASE 50 MG TABLET. PO SCH (09:15)
--- NOTE | 2018-09-06 09:40 | PDOC ---
SUBJECTIVE ROS No complaints , feeling good OBJECTIVE Vital Signs Vital Signs Date Time Temp Pulse Resp B/P (MAP) Pulse Ox O2 Delivery O2 Flow Rate FiO2 09/06/18 09:15 72 128/74 09/06/18 07:20 97.5 20 95 Room Air 97.5 I & 0 Intake and Output 09/06/18 07:00 Intake Total 700 ml Balance 700 ml Intake Oral 700 ml # Voids 2 PHYSICAL EXAM Physical Exam GEN: NAD HEEN: OM moist NECK: supple CVS: RRR RESP: CTA, No Acc. Muscle Use GI: BS + ve, NO Bruit, Non Tender, Non Distended : No CVA tenderness, No Suprapubic Tenderness NEURO- AXOX3 SKIN- No Rash - No Mark, No SP or CVA tenderness DIAGNOSIS/ASSESSMENT Assessment & Plan BRAEDEN - ATN Suspect sec to Aldactone Baseline Unknown(Cr 1.7-2 in 2013 at [facility]) Awaiting Records from PCP Renal US reviewed UA unremarkable , Holding Aldactone Improving renal function , Adequate Hydration , Avoid Nephrotoxins Hyperkalemia - Improved BPH- On US with some PVR Urology Consulted Recommend Flomax and FU as OP CAD s/p CABG On Valsartan/HCTZ in past Spironolactone since past 3 months , Dced now Discussed A/P with pt and RN DC today. Follow up BMP 5-7 days, fax results to our office Pt will try to send his records from PCP to our Office as well Dw Pt and RN COMMENT/RELEVANT DATA Meds Current Medications Medications (Trade) Dose Ordered Sig/Viraj Start Time Stop Time Status Last Admin Dose Admin Albuterol Sulfate (Ventolin Neb Soln) 10 mg 1X ONCE 09/03/18 22:00 09/03/18 22:01 DC 09/03/18 22:40 10 MG Amlodipine Besylate (Norvasc) 10 mg DAILY 09/04/18 17:30 09/06/18 09:14 10 MG Aspirin (Ecotrin) 81 mg DAILY 09/04/18 17:00 09/06/18 09:14 81 MG Calcium Gluconate (Calcium Gluconate) 1,000 mg 1X ONCE 09/03/18 22:00 09/03/18 22:01 DC 09/03/18 22:11 1,000 MG Dextrose (Dextrose 50%-Water Syringe) 12.5 gm PRN Q15MIN PRN 09/04/18 17:30 Glimepiride (Amaryl) 1 mg DAILYWBKFT 09/05/18 08:00 09/06/18 09:14 1 MG Heparin Sodium (Porcine) (Heparin Sodium) 5,000 unit Q8HRS 09/04/18 22:00 09/05/18 20:27 5,000 UNIT Insulin Human Lispro (HumaLOG) 0-5 UNITS TIDWMEALS 09/05/18 08:00 Insulin Human Regular (HumuLIN R VIAL) 10 unit 1X ONCE 09/03/18 22:00 09/03/18 22:01 DC 09/03/18 22:12 10 UNIT Metoprolol Tartrate (Lopressor) 50 mg BID 09/04/18 21:00 09/06/18 09:15 50 MG Ondansetron HCl (Zofran) 4 mg PRN Q8HRS PRN 09/03/18 22:15 09/04/18 22:14 DC Sodium Polystyrene Sulfonate (Kayexalate) 30 gm 1X ONCE 09/03/18 22:00 09/03/18 22:01 DC 09/03/18 22:10 30 GM Sodium Bicarbonate (Sodium Bicarb Adult 8.4% Syr) 50 meq 1X ONCE 09/03/18 22:00 09/03/18 22:01 DC 09/03/18 22:10 50 MEQ Sodium Chloride 1,000 ml @ 125 mls/hr Q8H 09/03/18 22:03 09/04/18 22:02 DC 09/04/18 14:39 125 MLS/HR Tamsulosin HCl (Flomax) 0.4 mg DAILY 09/06/18 09:00 09/06/18 09:15 0.4 MG Lab Laboratory Tests Test 09/05/18 11:22 09/05/18 16:50 09/05/18 19:27 09/06/18 03:40 Glucose (Fingerstick) 118 mg/dL (70-99) 85 mg/dL (70-99) 178 mg/dL (70-99) Sodium Level 139 mmol/L (136-145) Potassium Level 5.0 mmol/L (3.5-5.1) Chloride Level 105 mmol/L (98-107) Carbon Dioxide Level 23 mmol/L (21-32) Anion Gap 11 (6-14) Blood Urea Nitrogen 51 mg/dL (8-26) Creatinine 2.1 mg/dL (0.7-1.3) Estimated GFR (Cockcroft-Gault) 30.8 Glucose Level 78 mg/dL (70-99) Calcium Level 8.9 mg/dL (8.5-10.1) Phosphorus Level 3.7 mg/dL (2.6-4.7) Albumin 3.7 g/dL (3.4-5.0) Test 09/06/18 07:23 Glucose (Fingerstick) 72 mg/dL (70-99) Results All relevant outside records, renal labs, imaging studies, telemetry/EKG's were reviewed. DAISY ACKERMAN MD Sep 06, 2018 09:40
--- NOTE | 2018-09-06 09:46 | PDOC ---
YARITZA CRUZ EXTRACTIVE METALLURGIST 09/06/18 0946: SUBJECTIVE Subjective Pt doing well, no problems voiding. No side effects from Flomax so far. Ready to go home. OBJECTIVE Objective Physical Exam: General appearance: Alert and Oriented Head: Normocephalic, without obvious abnormality Eyes: conjunctivae/corneas clear. PERRL, EOM's intact. Fundi benign Back: No CVA pain bilaterally Lungs: Regular respirations, non labored breathing Abdomen: soft, non-tender, obese No masses, no organomegaly Pelvic: deferred Vital Signs Vital Signs Date Time Temp Pulse Resp B/P (MAP) Pulse Ox O2 Delivery O2 Flow Rate FiO2 09/06/18 09:15 72 128/74 09/06/18 09:14 72 128/74 09/06/18 07:20 97.5 72 20 128/74 (92) 95 Room Air 97.5 09/06/18 02:55 98.1 70 18 118/68 (85) 98 Room Air 98.1 09/05/18 22:46 97.7 69 18 137/79 (98) 98 Room Air 97.7 09/05/18 20:24 73 118/70 09/05/18 20:00 Room Air 09/05/18 19:00 97.6 73 18 118/70 (86) 95 Room Air 97.6 09/05/18 15:00 97.2 76 20 158/72 (100) 97 Room Air 97.2 09/05/18 11:00 97.5 68 20 136/71 (92) 99 Room Air 97.5 I & O Intake and Output 09/06/18 07:00 Intake Total 700 ml Balance 700 ml Intake Oral 700 ml # Voids 2 PHYSICAL EXAM Physical Exam Physical Exam: General appearance: Alert and Oriented Head: Normocephalic, without obvious abnormality Eyes: conjunctivae/corneas clear. PERRL, EOM's intact. Fundi benign Back: No CVA pain bilaterally Lungs: Regular respirations, non labored breathing Abdomen: soft, non-tender, obese No masses, no organomegaly Pelvic: deferred ASSESSMENT/PLAN Assessment/Plan A follow up appointment has been arranged for him to see Dr. Sykes on 10/03/18 at 0900 am for PSA/follow up on Flomax thx. Appointment card and new patient paperwork given to patient. All questions answered. Continue Flomax; Script written for 1 tab daily, total of 30 with 2 refills and given to attending RN. OK to D/C from a Urology perspective. Will sign off at this time, but please call with questions or changes in patient condition. COMMENT Lab Laboratory Tests Test 09/05/18 11:22 09/05/18 16:50 09/05/18 19:27 09/06/18 03:40 Glucose (Fingerstick) 118 mg/dL (70-99) 85 mg/dL (70-99) 178 mg/dL (70-99) Sodium Level 139 mmol/L (136-145) Potassium Level 5.0 mmol/L (3.5-5.1) Chloride Level 105 mmol/L (98-107) Carbon Dioxide Level 23 mmol/L (21-32) Anion Gap 11 (6-14) Blood Urea Nitrogen 51 mg/dL (8-26) Creatinine 2.1 mg/dL (0.7-1.3) Estimated GFR (Cockcroft-Gault) 30.8 Glucose Level 78 mg/dL (70-99) Calcium Level 8.9 mg/dL (8.5-10.1) Phosphorus Level 3.7 mg/dL (2.6-4.7) Albumin 3.7 g/dL (3.4-5.0) Test 09/06/18 07:23 Glucose (Fingerstick) 72 mg/dL (70-99) MOIZ SYKES MD 09/12/18 1506: ASSESSMENT/PLAN Assessment/Plan Agree with assessment and plan. YARITZA CRUZ APRN Sep 06, 2018 09:46 MOIZ SYKES MD Sep 12, 2018 15:06
--- NOTE | 2018-09-06 10:17 | PDOC ---
PROGRESS NOTES History of Present Illness History of Present Illness Assessment/Plan Assessment/Plan impression 1. acute renal failure, severe 2. hyperkalemia, life threatening, severe 3. diabetes 4. 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 hx lymphoma 6. hypertension hx 7. hx CAD 8. Post void bladder residual volume was found to be elevated at 253 cc. 9. prostate appears to be enlarged possibly partially calcified external projecting into the inferior bladder.estimated prostatic dimensions are 3.8 x 3.9 x 3.1 cm. There is a possible right sided bladder diverticulum which is poorly demonstrated. plan corrected k URGENTLY nephrology consult cr now 2.1 iv fluid support tele frequent labs bp control a1c D/C nephrotoxins, allopurinol, valsarten accuchecks ss insulin DVT prophylaxis urology consult low protein-predialysis diet 25 min pt exam, chart review, > 50% of time spent with exam, chart review, pt care coordination, d./c planning Vitals Vitals Vital Signs Date Time Temp Pulse Resp B/P (MAP) Pulse Ox O2 Delivery O2 Flow Rate FiO2 09/06/18 09:15 72 128/74 09/06/18 08:00 Room Air 09/06/18 07:20 97.5 20 95 97.5 Physical Exam General: Alert, Oriented X3, Cooperative, No acute distress, mild distress Heart: Regular rate, Normal S1 Lungs: Clear Abdomen: Normal bowel sounds, Soft Extremities: No clubbing, No cyanosis Skin: No breakdown, No significant lesion Labs LABS Laboratory Tests Test 09/05/18 11:22 09/05/18 16:50 09/05/18 19:27 09/06/18 03:40 Glucose (Fingerstick) 118 mg/dL (70-99) 85 mg/dL (70-99) 178 mg/dL (70-99) Sodium Level 139 mmol/L (136-145) Potassium Level 5.0 mmol/L (3.5-5.1) Chloride Level 105 mmol/L (98-107) Carbon Dioxide Level 23 mmol/L (21-32) Anion Gap 11 (6-14) Blood Urea Nitrogen 51 mg/dL (8-26) Creatinine 2.1 mg/dL (0.7-1.3) Estimated GFR (Cockcroft-Gault) 30.8 Glucose Level 78 mg/dL (70-99) Calcium Level 8.9 mg/dL (8.5-10.1) Phosphorus Level 3.7 mg/dL (2.6-4.7) Albumin 3.7 g/dL (3.4-5.0) Test 09/06/18 07:23 Glucose (Fingerstick) 72 mg/dL (70-99) Assessment and Plan Assessmemt and Plan Problems Medical Problems: (1) Acute renal failure (ARF) Status: Acute (2) Hyperkalemia Status: Acute Comment Review of Relevant I have reviewed the following items tonia (where applicable) has been applied. Labs Laboratory Tests Test 09/04/18 19:15 09/05/18 02:50 09/05/18 07:28 09/05/18 08:01 Glucose (Fingerstick) 94 mg/dL (70-99) 68 mg/dL (70-99) 103 mg/dL (70-99) White Blood Count 6.4 x10^3/uL (4.0-11.0) Red Blood Count 3.68 x10^6/uL (4.30-5.70) Hemoglobin 11.5 g/dL (13.0-17.5) Hematocrit 34.5 % (39.0-53.0) Mean Corpuscular Volume 94 fL (79-100) Mean Corpuscular Hemoglobin 31 pg (25-35) Mean Corpuscular Hemoglobin Concent 33 g/dL (31-37) Red Cell Distribution Width 14.2 % (11.5-14.5) Platelet Count 114 x10^3/uL (140-400) Neutrophils (%) (Auto) 72 % (31-73) Lymphocytes (%) (Auto) 18 % (24-48) Monocytes (%) (Auto) 6 % (0-9) Eosinophils (%) (Auto) 3 % (0-3) Basophils (%) (Auto) 1 % (0-3) Neutrophils # (Auto) 4.6 x10^3uL (1.8-7.7) Lymphocytes # (Auto) 1.1 x10^3/uL (1.0-4.8) Monocytes # (Auto) 0.4 x10^3/uL (0.0-1.1) Eosinophils # (Auto) 0.2 x10^3/uL (0.0-0.7) Basophils # (Auto) 0.1 x10^3/uL (0.0-0.2) Sodium Level 141 mmol/L (136-145) Potassium Level 5.0 mmol/L (3.5-5.1) Chloride Level 106 mmol/L (98-107) Carbon Dioxide Level 24 mmol/L (21-32) Anion Gap 11 (6-14) Blood Urea Nitrogen 61 mg/dL (8-26) Creatinine 2.4 mg/dL (0.7-1.3) Estimated GFR (Cockcroft-Gault) 26.4 BUN/Creatinine Ratio 25 (6-20) Glucose Level 66 mg/dL (70-99) Calcium Level 8.9 mg/dL (8.5-10.1) Total Bilirubin 1.0 mg/dL (0.2-1.0) Aspartate Amino Transf (AST/SGOT) 23 U/L (15-37) Alanine Aminotransferase (ALT/SGPT) 37 U/L (16-63) Alkaline Phosphatase 70 U/L (46-116) Total Protein 6.4 g/dL (6.4-8.2) Albumin 3.5 g/dL (3.4-5.0) Albumin/Globulin Ratio 1.2 (1.0-1.7) Test 09/05/18 11:22 09/05/18 16:50 09/05/18 19:27 09/06/18 03:40 Glucose (Fingerstick) 118 mg/dL (70-99) 85 mg/dL (70-99) 178 mg/dL (70-99) Sodium Level 139 mmol/L (136-145) Potassium Level 5.0 mmol/L (3.5-5.1) Chloride Level 105 mmol/L (98-107) Carbon Dioxide Level 23 mmol/L (21-32) Anion Gap 11 (6-14) Blood Urea Nitrogen 51 mg/dL (8-26) Creatinine 2.1 mg/dL (0.7-1.3) Estimated GFR (Cockcroft-Gault) 30.8 Glucose Level 78 mg/dL (70-99) Calcium Level 8.9 mg/dL (8.5-10.1) Phosphorus Level 3.7 mg/dL (2.6-4.7) Albumin 3.7 g/dL (3.4-5.0) Test 09/06/18 07:23 Glucose (Fingerstick) 72 mg/dL (70-99) Laboratory Tests Test 09/05/18 11:22 09/05/18 16:50 09/05/18 19:27 09/06/18 03:40 Glucose (Fingerstick) 118 mg/dL (70-99) 85 mg/dL (70-99) 178 mg/dL (70-99) Sodium Level 139 mmol/L (136-145) Potassium Level 5.0 mmol/L (3.5-5.1) Chloride Level 105 mmol/L (98-107) Carbon Dioxide Level 23 mmol/L (21-32) Anion Gap 11 (6-14) Blood Urea Nitrogen 51 mg/dL (8-26) Creatinine 2.1 mg/dL (0.7-1.3) Estimated GFR (Cockcroft-Gault) 30.8 Glucose Level 78 mg/dL (70-99) Calcium Level 8.9 mg/dL (8.5-10.1) Phosphorus Level 3.7 mg/dL (2.6-4.7) Albumin 3.7 g/dL (3.4-5.0) Test 09/06/18 07:23 Glucose (Fingerstick) 72 mg/dL (70-99) Medications Current Medications Sodium Bicarbonate (Sodium Bicarb Adult 8.4% Syr) 50 meq 1X ONCE IV Last administered on 09/03/18at 22:10; Start 09/03/18 at 22:00; Stop 09/03/18 at 22:01; Status DC Calcium Gluconate (Calcium Gluconate) 1,000 mg 1X ONCE IVP Last administered on 09/03/18at 22:11; Start 09/03/18 at 22:00; Stop 09/03/18 at 22:01; Status DC Dextrose (Dextrose 50%-Water Syringe) 25 gm 1X ONCE IV Last administered on 22:10; Start 09/03/18 at 22:00; Stop 09/03/18 at 22:01; Status DC Insulin Human Regular (HumuLIN R VIAL) 10 unit 1X ONCE IV Last administered on 09/03/18at 22:12; Start 09/03/18 at 22:00; Stop 09/03/18 at 22:01; Status DC Albuterol Sulfate (Ventolin Neb Soln) 10 mg 1X ONCE CONT NEB Last administered on 09/03/18 22:40; Start 09/03/18 at 22:00; Stop 09/03/18 at 22:01; Status DC Sodium Polystyrene Sulfonate (Kayexalate) 30 gm 1X ONCE PO Last administered on 09/03/18 22:10; Start 09/03/18 at 22:00; Stop 09/03/18 at 22:01; Status DC Ondansetron HCl (Zofran) 4 mg PRN Q8HRS PRN IV NAUSEA/VOMITING; Start 09/03/18 at 22:15; Stop 09/04/18 at 22:14; Status DC Sodium Chloride 1,000 ml @ 125 mls/hr Q8H IV Last administered on 09/04/18 14 :39; Start 09/03/18 at 22:03; Stop 09/04/18 at 22:02; Status DC Amlodipine Besylate (Norvasc) 10 mg DAILY PO Last administered on 09/06/18 09: 14; Start 09/04/18 at 17:30 Aspirin (Ecotrin) 81 mg DAILY PO Last administered on 09/06/18 09:14; Start at 17:00 Glimepiride (Amaryl) 1 mg DAILYWBKFT PO Last administered on 09/06/18 09:14; Start 09/05/18 at 08:00 Metoprolol Tartrate (Lopressor) 50 mg BID PO Last administered on 09/06/18 09: 15; Start 09/04/18 at 21:00 Insulin Human Lispro (HumaLOG) 0-5 UNITS TIDWMEALS SQ ; Start 09/05/18 at 08:00 Dextrose (Dextrose 50%-Water Syringe) 12.5 gm PRN Q15MIN PRN IV SEE COMMENTS; Start 09/04/18 at 17:30 Heparin Sodium (Porcine) (Heparin Sodium) 5,000 unit Q8HRS SQ Last administered on 09/05/18 20:27; Start 09/04/18 at 22:00 Tamsulosin HCl (Flomax) 0.4 mg DAILY PO Last administered on 09/06/18 09:15; Start 09/06/18 at 09:00 Active Scripts Active Aspir 81 (Aspirin) 81 Mg Tablet.dr 81 Mg PO DAILY Glimepiride 1 Mg Tablet 1 Mg PO DAILY Allopurinol 100 Mg Tablet 100 Mg PO DAILY Bystolic (Nebivolol) 10 Mg Tablet 10 Mg PO DAILY Amlodipine Besylate 10 Mg Tablet 10 Mg PO DAILY Hydrochlorothiazide 25 Gm Powder 25 Gm MC DAILY Diovan Hct 320-25 Mg Tablet (Valsartan/Hydrochlorothiazide) 1 Each Tablet 1 Each PO DAILY Vitals/I & O Vital Sign - Last 24 Hours 09/05/18 09/05/18 09/05/18 09/05/18 11:00 15:00 19:00 20:00 Temp 97.5 97.2 97.6 97.5 97.2 97.6 Pulse 68 76 73 Resp 20 20 18 B/P (MAP) 136/71 (92) 158/72 (100) 118/70 (86) Pulse Ox 99 97 95 O2 Delivery Room Air Room Air Room Air Room Air 09/05/18 09/05/18 09/06/18 09/06/18 20:24 22:46 02:55 07:20 Temp 97.7 98.1 97.5 97.7 98.1 97.5 Pulse 73 69 70 72 Resp 18 18 20 B/P (MAP) 118/70 137/79 (98) 118/68 (85) 128/74 (92) Pulse Ox 98 98 95 O2 Delivery Room Air Room Air Room Air 09/06/18 09/06/18 09/06/18 08:00 09:14 09:15 Pulse 72 72 B/P (MAP) 128/74 128/74 O2 Delivery Room Air Intake and Output 09/05/18 09/05/18 09/06/18 15:00 23:00 07:00 Intake Total 500 ml 200 ml 0 ml Balance 500 ml 200 ml 0 ml LEIF OWENS MD Sep 06, 2018 10:17
[2018-09-06 11:04] VITALS: BP 134/69
--- NOTE | 2018-09-06 13:35 | PDOC3 ---
Discharge Summary Date of Admission: Sep 04, 2018 Date of Discharge: Sep 06, 2018 Follow-Up: 3-5 days Admitting Diagnosis comment: discharge diagnosis Assessment/Plan impression 1. acute renal failure, severe 2. hyperkalemia, life threatening, severe 3. diabetes 4. 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 hx lymphoma 6. hypertension hx 7. hx CAD 8. Post void bladder residual volume was found to be elevated at 253 cc. 9. prostate appears to be enlarged possibly partially calcified external projecting into the inferior bladder.estimated prostatic dimensions are 3.8 x 3.9 x 3.1 cm. There is a possible right sided bladder diverticulum which is poorly demonstrated. plan corrected k URGENTLY nephrology consult cr now 2.1 iv fluid support tele frequent labs bp control a1c D/C nephrotoxins, allopurinol, valsarten accuchecks ss insulin DVT prophylaxis urology consult low protein-predialysis diet 25 min pt exam, chart review, > 50% of time spent with exam, chart review, pt care coordination, d./c planning Vitals Vitals Vital Signs Date Time Temp Pulse Resp B/P (MAP) Pulse Ox O2 Delivery O2 Flow Rate FiO2 09/06/18 09:15 72 128/74 09/06/18 08:00 Room Air 09/06/18 07:20 97.5 20 95 97.5 Physical Exam General: Alert, Oriented X3, Cooperative, No acute distress, no distress Heart: Regular rate, Normal S1 Lungs: Clear Abdomen: Normal bowel sounds, Soft Extremities: No clubbing, No cyanosis Skin: No breakdown, No significant lesion FINAL DIAGNOSIS Problems Medical Problems: (1) Acute renal failure (ARF) Status: Acute (2) Hyperkalemia Status: Acute Brief Hospital Course Mr. Mack is a 77 old [sex] who presented with [acute renal failure ] CONDITION AT DISCHARGE: Improved Discharge Medications Current Medications Sodium Bicarbonate (Sodium Bicarb Adult 8.4% Syr) 50 meq 1X ONCE IV Last administered on 09/03/18at 22:10; Start 09/03/18 at 22:00; Stop 09/03/18 at 22:01; Status DC Calcium Gluconate (Calcium Gluconate) 1,000 mg 1X ONCE IVP Last administered on 09/03/18at 22:11; Start 09/03/18 at 22:00; Stop 09/03/18 at 22:01; Status DC Dextrose (Dextrose 50%-Water Syringe) 25 gm 1X ONCE IV Last administered on 22:10; Start 09/03/18 at 22:00; Stop 09/03/18 at 22:01; Status DC Insulin Human Regular (HumuLIN R VIAL) 10 unit 1X ONCE IV Last administered on 09/03/18 22:12; Start 09/03/18 at 22:00; Stop 09/03/18 at 22:01; Status DC Albuterol Sulfate (Ventolin Neb Soln) 10 mg 1X ONCE CONT NEB Last administered on 09/03/18at 22:40; Start 09/03/18 at 22:00; Stop 09/03/18 at 22:01; Status DC Sodium Polystyrene Sulfonate (Kayexalate) 30 gm 1X ONCE PO Last administered on 09/03/18 22:10; Start 09/03/18 at 22:00; Stop 09/03/18 at 22:01; Status DC Ondansetron HCl (Zofran) 4 mg PRN Q8HRS PRN IV NAUSEA/VOMITING; Start 09/03/18 at 22:15; Stop 09/04/18 at 22:14; Status DC Sodium Chloride 1,000 ml @ 125 mls/hr Q8H IV Last administered on 09/04/18at 14 :39; Start 09/03/18 at 22:03; Stop 09/04/18 at 22:02; Status DC Amlodipine Besylate (Norvasc) 10 mg DAILY PO Last administered on 09/06/18 09: 14; Start 09/04/18 at 17:30 Aspirin (Ecotrin) 81 mg DAILY PO Last administered on 09/06/18 09:14; Start at 17:00 Glimepiride (Amaryl) 1 mg DAILYWBKFT PO Last administered on 09/06/18 09:14; Start 09/05/18 at 08:00 Metoprolol Tartrate (Lopressor) 50 mg BID PO Last administered on 09/06/18 09: 15; Start 09/04/18 at 21:00 Insulin Human Lispro (HumaLOG) 0-5 UNITS TIDWMEALS SQ Last administered on 4/12 /19at 12:41; Start 09/05/18 at 08:00 Dextrose (Dextrose 50%-Water Syringe) 12.5 gm PRN Q15MIN PRN IV SEE COMMENTS; Start 09/04/18 at 17:30 Heparin Sodium (Porcine) (Heparin Sodium) 5,000 unit Q8HRS SQ Last administered on 09/05/18at 20:27; Start 09/04/18 at 22:00 Tamsulosin HCl (Flomax) 0.4 mg DAILY PO Last administered on 09/06/18at 09:15; Start 09/06/18 at 09:00 Active Scripts Active Aspir 81 (Aspirin) 81 Mg Tablet.dr 81 Mg PO DAILY Glimepiride 1 Mg Tablet 1 Mg PO DAILY Allopurinol 100 Mg Tablet 100 Mg PO DAILY Bystolic (Nebivolol) 10 Mg Tablet 10 Mg PO DAILY Amlodipine Besylate 10 Mg Tablet 10 Mg PO DAILY Hydrochlorothiazide 25 Gm Powder 25 Gm MC DAILY Diovan Hct 320-25 Mg Tablet (Valsartan/Hydrochlorothiazide) 1 Each Tablet 1 Each PO DAILY Vital Signs Vital Signs Date Time Temp Pulse Resp B/P (MAP) Pulse Ox O2 Delivery O2 Flow Rate FiO2 09/06/18 11:04 98.5 78 20 134/69 (90) 98 Room Air 98.5 Labs Laboratory Tests Test 09/04/18 19:15 09/05/18 02:50 09/05/18 07:28 09/05/18 08:01 Glucose (Fingerstick) 94 mg/dL (70-99) 68 mg/dL (70-99) 103 mg/dL (70-99) White Blood Count 6.4 x10^3/uL (4.0-11.0) Red Blood Count 3.68 x10^6/uL (4.30-5.70) Hemoglobin 11.5 g/dL (13.0-17.5) Hematocrit 34.5 % (39.0-53.0) Mean Corpuscular Volume 94 fL (79-100) Mean Corpuscular Hemoglobin 31 pg (25-35) Mean Corpuscular Hemoglobin Concent 33 g/dL (31-37) Red Cell Distribution Width 14.2 % (11.5-14.5) Platelet Count 114 x10^3/uL (140-400) Neutrophils (%) (Auto) 72 % (31-73) Lymphocytes (%) (Auto) 18 % (24-48) Monocytes (%) (Auto) 6 % (0-9) Eosinophils (%) (Auto) 3 % (0-3) Basophils (%) (Auto) 1 % (0-3) Neutrophils # (Auto) 4.6 x10^3uL (1.8-7.7) Lymphocytes # (Auto) 1.1 x10^3/uL (1.0-4.8) Monocytes # (Auto) 0.4 x10^3/uL (0.0-1.1) Eosinophils # (Auto) 0.2 x10^3/uL (0.0-0.7) Basophils # (Auto) 0.1 x10^3/uL (0.0-0.2) Sodium Level 141 mmol/L (136-145) Potassium Level 5.0 mmol/L (3.5-5.1) Chloride Level 106 mmol/L (98-107) Carbon Dioxide Level 24 mmol/L (21-32) Anion Gap 11 (6-14) Blood Urea Nitrogen 61 mg/dL (8-26) Creatinine 2.4 mg/dL (0.7-1.3) Estimated GFR (Cockcroft-Gault) 26.4 BUN/Creatinine Ratio 25 (6-20) Glucose Level 66 mg/dL (70-99) Calcium Level 8.9 mg/dL (8.5-10.1) Total Bilirubin 1.0 mg/dL (0.2-1.0) Aspartate Amino Transf (AST/SGOT) 23 U/L (15-37) Alanine Aminotransferase (ALT/SGPT) 37 U/L (16-63) Alkaline Phosphatase 70 U/L (46-116) Total Protein 6.4 g/dL (6.4-8.2) Albumin 3.5 g/dL (3.4-5.0) Albumin/Globulin Ratio 1.2 (1.0-1.7) Test 09/05/18 11:22 09/05/18 16:50 09/05/18 19:27 09/06/18 03:40 Glucose (Fingerstick) 118 mg/dL (70-99) 85 mg/dL (70-99) 178 mg/dL (70-99) Sodium Level 139 mmol/L (136-145) Potassium Level 5.0 mmol/L (3.5-5.1) Chloride Level 105 mmol/L (98-107) Carbon Dioxide Level 23 mmol/L (21-32) Anion Gap 11 (6-14) Blood Urea Nitrogen 51 mg/dL (8-26) Creatinine 2.1 mg/dL (0.7-1.3) Estimated GFR (Cockcroft-Gault) 30.8 Glucose Level 78 mg/dL (70-99) Calcium Level 8.9 mg/dL (8.5-10.1) Phosphorus Level 3.7 mg/dL (2.6-4.7) Albumin 3.7 g/dL (3.4-5.0) Test 09/06/18 07:23 09/06/18 11:45 Glucose (Fingerstick) 72 mg/dL (70-99) 194 mg/dL (70-99) Laboratory Tests Test 09/05/18 16:50 09/05/18 19:27 09/06/18 03:40 09/06/18 07:23 Glucose (Fingerstick) 85 mg/dL (70-99) 178 mg/dL (70-99) 72 mg/dL (70-99) Sodium Level 139 mmol/L (136-145) Potassium Level 5.0 mmol/L (3.5-5.1) Chloride Level 105 mmol/L (98-107) Carbon Dioxide Level 23 mmol/L (21-32) Anion Gap 11 (6-14) Blood Urea Nitrogen 51 mg/dL (8-26) Creatinine 2.1 mg/dL (0.7-1.3) Estimated GFR (Cockcroft-Gault) 30.8 Glucose Level 78 mg/dL (70-99) Calcium Level 8.9 mg/dL (8.5-10.1) Phosphorus Level 3.7 mg/dL (2.6-4.7) Albumin 3.7 g/dL (3.4-5.0) Test 09/06/18 11:45 Glucose (Fingerstick) 194 mg/dL (70-99) Allergies Allergies Coded Allergies Type Severity Reaction Last Updated Verified No Known Drug Allergies 08/28/13 No Disposition/Orders: D/C to Home Patient Instructions d/c planning 25 min LEIF OWENS MD Sep 06, 2018 13:35
[2018-09-06] MEDS ORDERED: TAMS0.4C97 PO (13:37)
--- NOTE | 2018-09-06 13:38 | DISCH ---
DISCHARGE INSTRUCTIONS Condition on Discharge Condition on Discharge: Stable Activity After Discharge Activity Instructions for Disc: No restrictions Lifting Instructions after Dis: No pulling or pushing Exercise Instruction after Dis: Walk 10 min, 3 x per day Driving Instructions after Dis: Do not drive today Weight Bearing Status after Di: No restrictions Diet after Discharge Diet after Discharge: Cardiac, Low Potassium Diet Texture: Regular Liquid Texture: Thin Liquid Swallowing Supervision: None needed Checks after Discharge Checks after discharge: Check blood press - daily Contacting the DR. after DC Call your doctor for: Concerns you may have Treatment/Equipment after DC Adaptive Equipment Issued: None LEIF OWENS MD Sep 06, 2018 13:38
== END 2018-09-06 15:00 | disposition home or self-care (01) | DRG 684 ==
LOC: ER 20:30 → 6 SOUTH 21:41
PROVIDERS: ADMIT Internal Medicine; ATTEND Internal Medicine
DX: N17.0 Acute kidney failure with tubular necrosis (principal); E87.5 Hyperkalemia; E11.9 Type 2 diabetes mellitus without complications; I25.10 Atherosclerotic heart disease of native coronary artery without angina pectoris; N32.3 Diverticulum of bladder; I10 Essential (primary) hypertension; R31.0 Gross hematuria; N40.1 Benign prostatic hyperplasia with lower urinary tract symptoms; R33.8 Other retention of urine; Z85.72 Personal history of non-Hodgkin lymphomas; Z95.1 Presence of aortocoronary bypass graft; Z79.899 Other long term (current) drug therapy; Z82.49 Family history of ischemic heart disease and other diseases of the circulatory system
CPT/HCPCS: 36415; 76770; 80048; 80053; 80069; 81001; 82962; 83036; 83690; 85025; 85610; 93005; 94644; 96374; 96375; J0610; J1644; J1815; J7030; J7042; J7613; 99291-25